=== PATIENT | female | born 1970 | race Caucasian/White ===

== ENCOUNTER 2020-05-18 13:38 | Outpatient (CLI) | payer OTHER, SELFPAY ==
--- NOTE | ~2020-05-18 | US_ITS ---
EXAMINATION: US right upper quadrant EXAM DATE: 05/18/2020 14:17 INDICATION: Right upper quadrant pain. TECHNIQUE: Multiple grayscale and Doppler images of the abdomen right upper quadrant were obtained (b y a technologist who performed the scan) and subsequently reviewed. There is no prior study for caleb tomlin. FINDINGS: The pancreatic head and body are normal in appearance. The pancreatic tail is not visualized. The l iver has normal echogenicity and contour. There are no focal liver lesions identified. There is no evidence of intrahepatic biliary duct dilation. Portal venous flow was seen in the hepatopedal, nor mal direction and has normal Doppler waveform. No right-sided hydronephrosis. Common bile duct measures 6 mm, which is upper limits of normal. There is cholelithiasis with wall ec ho shadow appearance. No evidence of pericholecystic fluid. Technologist performing exam reports alisha ent did not demonstrate sonographic Braxton's sign. Please note that this sign is less reliable in pa tients who have received pain medication. IMPRESSION: Stone filled gallbladder. Reviewed, dictated and finalized at location B. 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
== END 2020-05-18 13:39 | disposition home or self-care (01) ==
PROVIDERS: PCP Internal Medicine; Visit Provider Clinical Nurse Specialist
DX: K80.20 Calculus of gallbladder without cholecystitis without obstruction (principal)
CPT/HCPCS: 76705

== ENCOUNTER → 2020-06-26 02:35 | Outpatient (CLI) | payer OTHER, SELFPAY ==
[2020-06-26 21:58] LABS: SARS-CoV-2 RNA PCR Negative
== END ==
PROVIDERS: PCP Internal Medicine; Visit Provider Surgery
DX: Z01.812 Encounter for preprocedural laboratory examination (principal); Z20.822 Contact with and (suspected) exposure to COVID-19
CPT/HCPCS: C9803; U0003; U0005

== ENCOUNTER 2020-06-29 00:56 | Day surgery (SDC) | payer OTHER, SELFPAY ==
[2020-06-22 16:32] VITALS: BMI 30.1
[2020-06-29] VITALS (8 sets, daily range): BP systolic 102–116; BP diastolic 58–73; PULSE 67–89; RESP 11–20; TEMP 36.1–37.2; O2SAT 97–100
[2020-06-29] MEDS: LACTATED RINGERS 1,000 ML 30 ML IV CONT ×2 (07:00→08:28)
--- NOTE | 2020-06-29 07:01 | P.PNAN_ITS ---
Anes - Initial Pre Proc Eval Procedure: Operation Date: 06/29/20 07:30 Proposed Procedures p Laparoscopic Cholecystectomy, Possible Open - Ruthie Ge MD Date/Time: 06/29/20 07:01 Surgeon: Ruthie Ge MD Pre Op Diagnosis: Chronic Cholecystitis with Stones Patient Data Age: 49 Gender: F Height: 5 ft 3 in Weight: 77.11 kg Allergies Allergy/AdvReac Type Severity Reaction Status Date / Time shellfish derived Allergy Rash Verified 05/25/20 13:44 Home Medications Medication Instructions Recorded Confirmed Type acyclovir 800 mg tablet 800 mg PO DAILY 03/05/20 06/22/20 History calcium carbonate 500 mg calcium 500 mg PO DAILY 03/05/20 06/22/20 History (1,250 mg) tablet norethindrone (contraceptive) 0.35 0.35 mg PO DAILY 03/05/20 06/22/20 History mg tablet Patient hx anesthesia problems: none Family hx anesthesia problems: none PMFSH Past Medical History Medical History Acid reflux Allergies Alopecia areata Gallstones Genital herpes GERD (gastroesophageal reflux disease) Surgical History Surgical History Delivery by section 2006 H/O wisdom tooth extraction Family History Family History Mother Rheumatoid arthritis Fibromyalgia Sjogrens syndrome Father Elevated cholesterol Grandparent Malignant neoplasm of prostate Hypertension Grandparent Multiple sclerosis Breast cancer Cerebrovascular accident Sibling Multiple sclerosis Sibling Scleroderma Other Opsoclonus-myoclonus syndrome Social History Social History Smoking status: Never smoker Alcohol intake: current Substance use: unknown Living arrangements: with family 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 Questions were solicited and answers provided to the satisfaction of the patient/family/POA.
[2020-06-29] MEDS: ACETAMINOPHEN 500 MG TABLET 1000 MG PO (07:07)
[2020-06-29] MEDS: KETOROLAC 15 MG/ML VIAL (*BKC) IV PUSH (07:14)
--- NOTE | 2020-06-29 07:20 | WPDHPUPDATE1 ---
History and Physical Update Update Date/Time: 06/29/20 07:20 History and Physical has been reviewed, including an updated exam of the patient. There are NO changes in the patient's condition. Risks, benefits, and alternatives have been discussed and questions answered. Patient agrees to proceed with procedure.
[2020-06-29] MEDS: ceFAZolin 2 GM/D5W 50 ML 2 GM/50 ML BAG IVPB (07:31)
[2020-06-29] MEDS: BUPIVACAINE/EPINEPHRINE 0.5% 30 ML VIAL INFILTRATE (08:17)
--- NOTE | 2020-06-29 08:31 | PM.PROC ---
Procedure Note - Detailed Date of procedure: 06/29/20 Pre-op diagnosis: Chronic Cholecystitis with Stones Post-op diagnosis: same Procedure performed: laparoscopic cholecystectomy Description of procedure: The patient was taken to the operating room placed in the supine position. After adequate induction of general anesthesia, the patient was prepped and draped in normal sterile fashion. A time-out was then performed to verify the patient's identity as well as the procedure being performed. I then made a 5 mm incision in the infraumbilical region. Through this, a Veress needle was placed into the peritoneal cavity and CO2 gas was then insufflated. After adequate pneumoperitoneum was achieved, the Veress needle was removed and a 5 mm trocar was placed through this incision. I then placed the laparoscope through this trocar site and under direct visualization placed a further 12 mm subxiphoid port as well as 2 additional 5 mm ports in the right upper abdomen. The gallbladder was then identified and was noted to be slightly inflamed and distended. There were multiple stones noted in the gallbladder. I was able to place a grasper at the dome of the gallbladder and this was retracted anterior and cephalad up over the liver. A 2nd retractor was then placed at the infundibulum and retracted laterally, this allowed visualization of the triangle of Calot. I then was able to visualize the cystic duct in its entirety from its proximal insertion into the gallbladder, to its distal junction with the common hepatic/common bile duct junction. At this point, I carefully skeletonized the proximal cystic duct with the [place] dissector. I then clipped and transected the proximal cystic duct. Next I visualized the cystic artery. Again the artery was skeletonized, clipped, and transected. I then used the Bovie cautery to take down the peritoneal attachments of the gallbladder off the liver bed. Once the gallbladder specimen was completely detached, an endo-pouch was placed through the 12 mm port site. I then placed the gallbladder specimen into the Endo pouch and removed the endo-pouch from the 12 mm port site. The specimen will now be sent to pathology for further review. I then copiously irrigated the right upper quadrant. Hemostasis was noted in the liver bed, the clips were noted to be in good position on both the cystic duct stump and the cystic artery stump. No other pathology was noted in the right upper quadrant. I then moved the laparoscope to the subxiphoid port. No iatrogenic injury or other pathology was noted in the lower abdomen. At this point, the abdomen was desufflated and all ports removed. The fascia of the 12 mm subxiphoid port was closed with a 0 Vicryl figure of 8 suture. All port sites were then closed with 4.O Monocryl subcuticular sutures. Dermabond was placed on each incision. The patient tolerated the procedure well, was extubated in the operating room postoperative and will be transferred to the recovery room in stable condition. Implants: none Anesthesia: GETA Surgeon: Ruthie Ge MD Estimated blood loss (mL): 5 Drains: No Packing: No Pathology: yes Complications: No immediate complications Condition: stable Disposition: PACU Findings: chronic cholecystitis, cholelithiasis
[2020-06-29] MEDS: SCOPOLAMINE 1.5 MG PATCH TRANSDERM (08:48)
[2020-06-29] MEDS: fentaNYL CITRATE INJ (*CRX) 100 MCG/2 ML VIAL 25 MCG IV PUSH (09:08)
== END 2020-06-29 10:33 | disposition home or self-care (01) ==
PROVIDERS: PCP Internal Medicine; Visit Provider Surgery
PROC: 0FT44ZZ Resection of Gallbladder, Percutaneous Endoscopic Approach (ICD-10-PCS; CPT 47562; principal; 2020-06-29 07:30)
DX: K80.10 Calculus of gallbladder with chronic cholecystitis without obstruction (principal); K21.9 Gastro-esophageal reflux disease without esophagitis; L63.9 Alopecia areata, unspecified; B00.9 Herpesviral infection, unspecified
CPT/HCPCS: 47562; 36415; 86850; 86900; 86901; 88304; A9270; C9803; J0690; J1100; J1170; J1885; J2250; J2405; J2704; J2710; J3010; J7030; J7120; U0003; U0005

== ENCOUNTER 2024-06-03 11:05 | Outpatient (CLI) | payer OTHER, SELFPAY ==
--- NOTE | ~2024-06-03 | XR_ITS ---
Left Shoulder Technique: AP and scapular Y views were obtained. Clinical History: Pain Findings: No acute fracture or dislocation is seen. Chronic, healed fracture deformity of the clavicu lar shaft noted. Osseous alignment is anatomic. The glenohumeral and acromioclavicular joint spaces a re preserved. Soft tissues are unremarkable. Impression: No acute abnormality. Chronic, healed fracture deformity of the clavicular shaft. Reviewed, dictated and finalized at [facility]. S SKINNER Impression: No acute abnormality. Chronic, healed fracture deformity of the clavicular shaft.
== END 2024-06-03 11:06 | disposition home or self-care (01) ==
LOC: GOSHIMG 11:06
PROVIDERS: PCP Clinical Nurse Specialist; Visit Provider Clinical Nurse Specialist
DX: S42.022D Displaced fracture of shaft of left clavicle, subsequent encounter for fracture with routine healing (principal); X58.XXXD Exposure to other specified factors, subsequent encounter
CPT/HCPCS: 73030

== ENCOUNTER 2024-06-28 14:39 | Outpatient (CLI) | payer OTHER, SELFPAY ==
--- NOTE | ~2024-06-28 | MR_ITS ---
EXAMINATION: MR brain/brain stem wo/w con DATE: 06/28/2024 15:42 INDICATION: Headache TECHNIQUE: Magnetic resonance imaging (MRI) of the brain and brainstem was performed without and with 15 mL Multihance intravenous contrast. Sequences included sagittal and axial T1-weighted SE, axial d iffusion-weighted FS SE, axial 3D SWAN, axial T2-weighted FLAIR, and axial T2-weighted FSE. Postcontr ast axial and coronal T1-weighted SE was obtained. Apparent diffusion coefficient (ADC) maps were cre ated. COMPARISON: None. FINDINGS: There is a right parafalcine arteriovenous malformation with 2.0 x 1.6 x 1.6 cm masslike cluster of m ultiple serpiginous vessels with associated flow artifact at the medial aspect of the anterior right frontal lobe. There is a prominent draining vein which extends to the superior sagittal sinus. There are no areas of restricted diffusion to suggest acute infarction. No intracranial hemorrhage or abnor mal intracranial mass lesion. There are scattered areas of nonspecific increased T2-weighted signal i ntensity in the cerebral white matter, predominantly involving the deep and periventricular white mat ter. There are no intraparenchymal signal abnormalities seen on the other pulse sequences. The ventri cles are symmetric and normal in size. There are no abnormal extra-axial fluid collections. Flow void s are seen in the cerebral arteries on the T2-weighted sequences consistent with their expected paten cy. Visualized orbits and soft tissues are unremarkable. Mild mucosal thickening the bilateral ethmoi d sinuses. There are no areas of abnormal enhancement on the post contrast images. IMPRESSION: 1. 2.0 x 1.6 x 1.6 cm masslike ball of serpiginous vessels with internal flow artifact and prominent draining vein positioned at the parafalcine anterior right middle lobe consistent with arteriovenous malformation. 2. Otherwise unremarkable brain MR with no acute intracranial process or other abnormally enhancing b rain lesions. Reviewed, dictated and finalized at location A. PUDDLER IMPRESSION: 1. 2.0 x 1.6 x 1.6 cm masslike ball of serpiginous vessels with internal flow a rtifact and prominent draining vein positioned at the parafalcine anterior righ t middle lobe consistent with arteriovenous malformation. 2. Otherwise unremarkable brain MR with no acute intracranial process or other abnormally enhancing brain lesions.
--- OUTSIDE RECORDS SUMMARY | 2024-06-28 14:46 | XMS_ITS | Clinical Summary ---
Author Organization [facility] [address] Address [address] [place] [address] Care Team Providers Care Soldering Machine Tender Name Role Phone Nita Major NP Primary Care Provider [phone] Allergies Active Allergy Reactions Criticality Noted Date Comments Shellfish Rash Medium 11/21/2019 Medications ALPRAZolam (XANAX) 0.5 mg tabletIndication s:Anxiety Take 1 tablet (0.5 mg total) by mouth nightly as needed for anxiety 7 tablet 09/01/2023 Active buPROPion XL (WELLBUTRIN XL) 150 mg 24 hr tabletIndication s:Class 1 obesity due to excess calories without serious comorbidity with body mass index (BMI) of 32.0 to 32.9 in adult Take 2 tablets (300 mg total) by mouth every morning 180 tablet 09/01/2023 09/01/19 25 Active Active Problems Problem Noted Date Diagnosed Date Encounter for screening colonoscopy 01/02/2024 Anxiety 09/01/2023 Assessment & Plan (09/01/2023 5:04 PM CDT): Anxious about travel; will be flying and going on a cruise Xanax 0.5 mg as needed Class 1 obesity due to exces s calories without serious comorbidity with body mass index (BMI) of 32.0 to 32.9 in adult 09/01/2023 Assessment & Plan (09/01/2023 5:11 PM CDT): Stable, has been trying to lose weight Has been doing intermittent fasting; down 8-10 pounds Start Wellbutrin 150 mg daily x 2 weeks then increase to 300 mg daily Resolved Problems Problem Noted Date Diagnosed Date Resolved Date Infectious warts 06/14/2016 09/01/2023 Overview (08/11/2016): Wart Encounters Date Type Department Care Team Description 06/24/2024 11:50 AM WILL CALL ORDER CLERK Lab [address] [address] from Last 3 Months Immunizations Immunization Administration Dates Next Due Influenza, Quadrivalent, Rec ombinant, Egg Free, Preservative Free, Intramuscular 07/22/2019 Influenza, Quadrivalent, Spl it, Preservative Free, Intramuscular 02/26/2023 Influenza, Trivalent, Preservative Free, Intramu scular 02/07/2024 PPD TEST 11/21/2019 Surgical History Surgery Date Site/Laterality Comments BREAST BIOPSY 05/08/2020 Left benign needle bx, cyst; negative Family History Medical History Relation Name Comments Breast cancer Maternal Grandmother Autoimmune disease Mother Lung cancer Mother lung cancer Mother Autoimmune disease Sister 1 Autoimmune disease Sister 2 Ovarian cancer Neg Hx Thyroid cancer Neg Hx Relation Name Status Comments Maternal Grandmother Mother Sister 1 Sister 2 Social History Tobacco Use Types Packs/Day Years Used Date Smoking Tobacco: Never Smokeless Tobacco: Never Tobacco Cessation:Counseling Given: Not Answered PHQ-2 Answer Date Recorded PHQ-2 Total Score (If total score is 3 or more points, staff should administer the PHQ-9) 0 09/01/2023 Comments Unknown Sex and Gender Information Value Date Recorded Sex Assigned at Not on file Legal Sex Female 12:56 PM WILL CALL ORDER CLERK Gender Identity Not on file Sexual Orientation Not on file Obstetrics History Para Term AB IAB SAB Ectopic Multiple Livin g Live Births 4 2 2 Date Outcome GA Total Labor Labor/2nd/3rd Weight Sex Type Anes PTL Elisa A1 A5 Name Clin Term Term Last Filed Vital Signs Vital Sign Reading Time Taken Comments Blood Pressure 128/84 09/01/2023 4:51 PM CDT Pulse 91 09/01/2023 4:51 PM CDT Temperature 36.7 C (98 F) 09/01/2023 4:51 PM CDT Respiratory Rate 18 09/01/2023 4:51 PM CDT Oxygen Saturation 99% 09/01/2023 4:51 PM CDT Inhaled Oxygen Concentration - - Weight 79.4 kg (175 lb) 09/01/2023 4:51 PM CDT Height 160 cm (5' 2.99 ) 09/01/2023 4:51 PM CDT Body Mass Index 31.01 09/01/2023 4:51 PM CDT Plan of Treatment Scheduled Procedures Name Priority Associated Diagnoses Date/Ti me COLONOSCOPY Open Access Encounter for screening colonoscopy Health Maintenance Due Date Last Done Comments Colon Cancer Screening-Colonoscopy 1969 DTaP/Tdap/Td Vaccine (1 - Tdap) 1980 Hepatitis B Screening 10/14/1987 Regular Well Visit/Exam 18-64 10/14/1987 Zoster Vaccine (1 of 2) 10/14/2019 Cervical Cancer Screening 10/15/2023 10/14/2022 Depression Screening 08/31/2024 09/01/2023 Breast Cancer Screening-Mammogram 02/15/2025 02/16/2024, 12/14/2022, 11/22/2022, Additional history exists Covid-19 Vaccine Discontinued 06/26/2020, 05/28/2020 Influenza Vaccine Completed 02/07/2024, , 01/11/2020, Additional history exists Hepatitis C Screening Completed 06/24/2024, 024 Pneumococcal vaccine <65 Aged Out No longer eligible based on patient's age to complete this topic Procedures Procedure Name Priority Date/Time Associated Diagnosis Comments EGFR Routine 06/24/2024 11:54 AM WILL CALL ORDER CLERK DIFFERENTIAL AUTO Routine 06/24/2024 11: 54 AM WILL CALL ORDER CLERK RHEUMATOID FACTOR Routine 06/24/2024 11: 54 AM WILL CALL ORDER CLERK CRP (ACUTE PHASE) Routine 06/24/2024 11: 54 AM WILL CALL ORDER CLERK LETY SCREEN W/REFLEX ERASMO+DSDNA Routine 06/24/2024 11:54 AM WILL CALL ORDER CLERK CREATINE KINASE (CK), TOTAL Routine 06/24/2024 11:54 AM WILL CALL ORDER CLERK SCL 70 ANTIBODIES Routine 06/24/2024 11: 54 AM WILL CALL ORDER CLERK ERYTHROCYTE SEDIMENTATION RATE Routine 06/24/2024 11:54 AM WILL CALL ORDER CLERK COMPREHENSIVE METABOLIC PANEL Routine 06/24/2024 11:54 AM WILL CALL ORDER CLERK URIC ACID Routine 06/24/2024 11:54 AM WILL CALL ORDER CLERK G6PD QUALITATIVE WITH REFLEX TO QUANTITATIVE Routine 06/24/2024 11:54 AM WILL CALL ORDER CLERK CYCLIC CITRUL PEPTIDE ANTIBODY, IGG Routine 06/24/2024 11:54 AM WILL CALL ORDER CLERK CBC WITH AUTO DIFFERENTIAL Routine 06/24/2024 11:54 AM WILL CALL ORDER CLERK SJOGRENS SYNDROME-B ANTIBODY Routine 06/24/2024 11:54 AM WILL CALL ORDER CLERK SJOGRENS SYNDROME-A ANTIBODY Routine 06/24/2024 11:54 AM WILL CALL ORDER CLERK HEPATITIS B SURFACE ANTIGEN Routine 06/24/2024 11:54 AM WILL CALL ORDER CLERK HEPATITIS C ANTIBODY Routine 06/24/2024 11:54 AM WILL CALL ORDER CLERK SCREENING MAMMOGRAM BILATERAL W ALAN Schedule Routine, Read Routine (OP Routine) 02/16/2024 1:24 PM CDT Screening mammogram, encounter for from Last 3 Months or Most Recently Relevant to Health Maintenance Results * LETY screen w/rflx ERASMO+dsDNA (06/24/2024 11:54 AM WILL CALL ORDER CLERK) LETY Negative Comment: Interpretive Data Normal range for LETY Qualitative Antibody = Negative. 1. LETY is performed using indirect immunofluorescence against HEp-2 cells 2. LETY titers are performed on all positive qualitative results. 3. A significantly positive LETY result is defined as a positive nuclear fluorescence at a titer of 1:80 or greater. 4. 15% of normal people above age 65 have significantly positive LETY results. 5% or less of normal people age 65 or under have significantly positive LETY results. Current interpretive data was last revised on 2020. Testing performed by: [facility], [address] [place] [address] Blood 06/24/2024 11:5 4 AM WILL CALL ORDER CLERK 06/24/2024 7:49 PM WILL CALL ORDER CLERK us Virginia Mancia MD LAB BLOOD ORDERABLES Final Resul t Performing Organization Address [facility] de Phone Number [facility] [address] Department [place] [address] * G6PD qualitative with reflex to quantitative (06/24/2024 11:54 AM WILL CALL ORDER CLERK) G6PD Normal Normal Comment: Interp data: G6PD activity should be interpreted in the context of a patient's hematocrit. Hematocrit < 20% may lead to a falsely deficient result, while hematocrit > 50% may lead to a falsely normal result. Current interpretive data was last revised on 2019. Testing performed by: [facility], [address] [place] [address]., [address] Blood 06/24/2024 11:5 4 AM WILL CALL ORDER CLERK 06/24/2024 7:49 PM WILL CALL ORDER CLERK Result Toni Mancia MD LAB BLOOD ORDERABLES Final Resul t Performing Organization Address [facility] de Phone Number [facility] [address] Department [place] [address] * SCL 70 abs (06/24/2024 11:54 AM WILL CALL ORDER CLERK) Anti-Scl70, IgG <0.2 <=0.9 Ab Index Comment: Interpretive Data Negative: < 1.0 Ab Index Positive: > or = 1.0 Ab Index Current interpretive data was last revised on 2016. Testing performed by: [facility], [address] [place] [address]., [id number] Blood 06/24/2024 11:5 4 AM WILL CALL ORDER CLERK 06/24/2024 7:43 PM WILL CALL ORDER CLERK us Virginia Mancia MD LAB BLOOD ORDERABLES Final Resul t Performing Organization Address [facility] Co de Phone Number [facility] [address] Department [place] [address] * eGFR (06/24/2024 11:54 AM WILL CALL ORDER CLERK) eGFR >90 >=60 mL/min/1. 73 m2 Comment: Interpretive Data Reference Interval Normal >/= 90 mL/min/1.73m2 Mildly decreased* 60 - 89 mL/min/1.73m2 Mildly to moderately decreased 45 - 59 mL/min/1.73m2 Moderately to severely decreased 30 - 44 mL/min/1.73m2 Severely decreased 15 - 29 mL/min/1.73m2 Kidney Failure < 15 mL/min/1.73m2 *Relative to young adult level Estimated glomerular filtration rate is determined by the 2020 CKD-EPI equation recommended by the National Kidney Foundation (A Unifying Approach to GFR Estimation: Recommendations of the NKF-ASK Task Force on Reassessing the Inclusion of Race in Diagnosing Kidney Disease, JASN 2020). The CKD-EPI equation should not be used for patients with unstable renal function and has not been validated in children and those over 70. Current interpretive data was last reviewed 2021. Blood 06/24/2024 11:5 4 AM WILL CALL ORDER CLERK 06/24/2024 5:23 PM WILL CALL ORDER CLERK us Virginia Mancia MD LAB BLOOD ORDERABLES Final Resul t Performing Organization Address City/[facility]/ZIP Co de Phone Number [facility] [address] Department [place] [address] * Differential, auto (06/24/2024 11:54 AM WILL CALL ORDER CLERK) Pathologist [facility] Neutrophil abs 3.8 1.5 - 6.5 K/cumm Imm gran abs 0.0 0.0 - 0.1 K/cumm [facility] Lymphocyte abs 1.7 0.8 - 3.3 K/cumm [facility] Monocyte abs 0.7 0.2 - 0.8 K/cumm [facility] Eosinophil abs 0.1 0.0 - 0.5 K/cumm [facility] Basophil abs 0.0 0.0 - 0.1 K/cumm [facility] Neutrophil pct 60.8 % [facility] Comment: Interpretive Data Percent cell count reference ranges are not reported, since discordance with absolute values may lead to misinterpretation of CBC data. Current Interpretive Data was last revised on 2017. Imm gran pct 0.2 % [facility] Comment: Interpretive Data Percent cell count reference ranges are not reported, since discordance with absolute values may lead to misinterpretation of CBC data. Current Interpretive Data was last revised on 2017. Lymphocyte pct 26.5 % [facility] Comment: Interpretive Data Percent cell count reference ranges are not reported, since discordance with absolute values may lead to misinterpretation of CBC data. Current Interpretive Data was last revised on 2017. Monocyte pct 10.6 % [facility] Comment: Interpretive Data Percent cell count reference ranges are not reported, since discordance with absolute values may lead to misinterpretation of CBC data. Current Interpretive Data was last revised on 2017. Eosinophil pct 1.3 % [facility] Comment: Interpretive Data Percent cell count reference ranges are not reported, since discordance with absolute values may lead to misinterpretation of CBC data. Current Interpretive Data was last revised on 2017. Basophil pct 0.6 % [facility] Comment: Interpretive Data Percent cell count reference ranges are not reported, since discordance with absolute values may lead to misinterpretation of CBC data. Current Interpretive Data was last revised on 2017. Blood 06/24/2024 11:5 4 AM WILL CALL ORDER CLERK 06/24/2024 3:17 PM WILL CALL ORDER CLERK us Virginia Mancia MD LAB BLOOD ORDERABLES Final Resul t [facility] [address] Department [place] [address] * (ABNORMAL) CBC with auto differential (06/24/2024 11:54 AM WILL CALL ORDER CLERK) [facility] WBC 6.2 3.8 - 9.9 K/cumm Hgb 11.7(L) 11.9 - 15.5 g/dL [facility] Hct 38.4 35.6 - 45.5 % [facility] Plt 338 150 - 400 K/cumm [facility] MPV 11.3 9.1 - 12.3 fL [facility] RBC 4.74 3.90 - 5.20 M/cumm [facility] MCV 81.0(L) 81.3 - 96.4 fL [facility] MCH 24.7(L) 27.1 - 33.3 pg [facility] MCHC 30.5(L) 32.3 - 35.7 g/dL [facility] RDW CV 14.3 11.1 - 14.9 % [facility] RDW SD 41.7 35.7 - 48.1 fL [facility] NRBC abs 0.00 0.00 - 0.01 K/cumm [facility] Blood 06/24/2024 11:5 4 AM WILL CALL ORDER CLERK 06/24/2024 3:17 PM WILL CALL ORDER CLERK us Virginia Mancia MD LAB BLOOD ORDERABLES Final Resul t [facility] [address] Department [place] [address] * Hepatitis C antibody Blood (06/24/2024 11:54 AM WILL CALL ORDER CLERK) [facility] Hep C Ab Nonreactive Nonreactive Comment: Interpretive Data Nonreactive: Antibodies to HCV not detected. Does NOT exclude the possibility of recent exposure to HCV. Equivocal: Equivocal for HCV antibodies. Supplemental molecular testing will be automatically performed to determine infection status in accordance with current CDC screening recommendations. Reactive: Positive for HCV antibodies. This may represent current or past HCV infection. Supplemental molecular testing will be automatically performed to determine current infection status in accordance with current CDC screening recommendations. Interpretive data was last revised on 2019. Blood 06/24/2024 11:5 4 AM WILL CALL ORDER CLERK 06/24/2024 5:23 PM WILL CALL ORDER CLERK us Virginia Mancia MD LAB MICROBIOLOGY - GENERAL ORDER YANETH Final Result Performing Organization Address [facility] Co de Phone Number [facility] [address] Department of [employer] [place], [place] [id number] * Cyclic citrul peptide antibody, IgG (06/24/2024 11:54 AM WILL CALL ORDER CLERK) CCP Ab <0.5 <=2.9 units/mL Comment: Interpretive data Negative: <3 units/mL Positive: > or equal to 3 units/mL Current interpretive data was last revised on 2016. Testing performed by: [facility], [address] [place]., [address] Blood 06/24/2024 11:5 4 AM WILL CALL ORDER CLERK 06/24/2024 7:43 PM WILL CALL ORDER CLERK us Virginia Mancia MD LAB BLOOD ORDERABLES Final Resul t Performing Organization Address [facility] Co de Phone Number [facility] [address] Department [employer] [place], [place] [id number] * Hepatitis B Surface Antigen Blood (06/24/2024 11:54 AM WILL CALL ORDER CLERK) Pathologist [facility] HepBsAg Nonreactive Nonreactive Blood 06/24/2024 11:5 4 AM WILL CALL ORDER CLERK 06/24/2024 5:23 PM WILL CALL ORDER CLERK us Virginia Mancia MD LAB MICROBIOLOGY - GENERAL ORDER YANETH Final Result Performing Organization Address City/[facility] Co de Phone Number [facility] [address] [facility] [employer] [place], [place] [id number] * Sjogren's syndrome B ab (06/24/2024 11:54 AM WILL CALL ORDER CLERK) Pathologist [facility] Anti-ERASMO, SS-B <0.2 <=0.9 Ab Index Comment: Interpretive Data Negative: < 1.0 Ab Index Positive: > or = 1.0 Ab Index Current interpretive data was last revised on 2016. Testing performed by: [facility], [address] [place]., [address] Blood 06/24/2024 11:5 4 AM WILL CALL ORDER CLERK 06/24/2024 7:43 PM WILL CALL ORDER CLERK us Virginia Mancia MD LAB BLOOD ORDERABLES Final Resul t Performing Organization Address [facility] de Phone Number [facility] [address] Department [place] [address] * Sjogren's syndrome A ab (06/24/2024 11:54 AM WILL CALL ORDER CLERK) Anti-ERASMO, SS-A <0.2 <=0.9 Ab Index Comment: Interpretive Data Negative: < 1.0 Ab Index Positive: > or = 1.0 Ab Index Current interpretive data was last revised on 2016. Testing performed by: [facility], [address] [place] [address], [place]., [address] Blood 06/24/2024 11:5 4 AM WILL CALL ORDER CLERK 06/24/2024 7:43 PM WILL CALL ORDER CLERK us Virginia Mancia MD LAB BLOOD ORDERABLES Final Resul t Performing Organization Address [facility] Co de Phone Number [facility] [address] Department [place] [address] * Erythrocyte sedimentation rate (06/24/2024 11:54 AM WILL CALL ORDER CLERK) Erythrocyte sedimentation rate 22 1 - 30 mm/hr Blood 06/24/2024 11:5 4 AM WILL CALL ORDER CLERK 06/24/2024 3:17 PM WILL CALL ORDER CLERK us Virginia Mancia MD LAB BLOOD ORDERABLES Final Resul t Performing Organization Address [facility] Co de Phone Number [facility] [address] [facility] [place] [address] * Rheumatoid factor (06/24/2024 11:54 AM WILL CALL ORDER CLERK) Pathologist [facility] Rheumatoid factor, quant <10 <=15 IUnits/mL Blood 06/24/2024 11:5 4 AM WILL CALL ORDER CLERK 06/24/2024 5:23 PM WILL CALL ORDER CLERK us Virginia Mancia MD LAB BLOOD ORDERABLES Final Resul t Performing Organization Address [facility] Co de Phone Number [facility] [address] Department [place] [address] * CRP (acute phase) (06/24/2024 11:54 AM WILL CALL ORDER CLERK) Pathologist [facility] CRP <3.0 <=10.0 mg/L Blood 06/24/2024 11:5 4 AM WILL CALL ORDER CLERK 06/24/2024 5:23 PM WILL CALL ORDER CLERK Result Toni Mancia MD LAB BLOOD ORDERABLES Final Resul t Performing Organization Address [facility] Co de Phone Number [facility] [address] Department [place] [address] * Uric acid (06/24/2024 11:54 AM WILL CALL ORDER CLERK) Pathologist [facility] Uric acid 3.8 2.5 - 7.0 mg/dL Blood 06/24/2024 11:5 4 AM WILL CALL ORDER CLERK 06/24/2024 5:23 PM WILL CALL ORDER CLERK Result Toni Mancia MD LAB BLOOD ORDERABLES Final Resul t Performing Organization Address [facility] Co de Phone Number [facility] [address] Department [place] [address] * Creatine kinase (CK), total (06/24/2024 11:54 AM WILL CALL ORDER CLERK) CK 80 30 - 200 Units/L Blood 06/24/2024 11:5 4 AM WILL CALL ORDER CLERK 06/24/2024 5:23 PM WILL CALL ORDER CLERK us Virginia Mancia MD LAB BLOOD ORDERABLES Final Resul t [facility] [address] Department [place] [address] * (ABNORMAL) Comprehensive metabolic panel (06/24/2024 11:54 AM WILL CALL ORDER CLERK) Pathologist [facility] Sodium 140 135 - 145 mmol/L Potassium, pl 3.7 3.3 - 4.9 mmol/L [facility] Chloride 103 97 - 110 mmol/L [facility] CO2 26 22 - 32 mmol/L [facility] Anion gap 11 2 - 15 mmol/L [facility] BUN 8 6 - 25 mg/dL [facility] Creatinine 0.70 0.60 - 1.10 mg/dL [facility] Glucose 68(L) 70 - 199 mg/dL [facility] Comment: Interpretive Data Fasting glucose >/= 126 mg/dl is diagnostic for diabetes. Fasting is defined as no caloric intake for at least 8 hours. Fasting glucose between 100 mg/dl to 125 mg/dl is diagnostic of prediabetes. In a patient with classic symptoms of hyperglycemia or hyperglycemic crisis, a random glucose >/= 200 mg/dl is diagnostic for diabetes. In the absence of unequivocal hyperglycemia, results should be confirmed by repeat testing. The classification and Diagnosis of Diabetes Diabetes Care 2021; 46: S19-S40. Current interpretive data was last revised 2022. Calcium 9.3 8.5 - 10.3 mg/dL [facility] Bilirubin, total 0.2 0.1 - 1.2 mg/dL [facility] Protein, pl 7.7 6.5 - 8.5 g/dL [facility] Albumin 4.2 3.5 - 5.0 g/dL [facility] Alk phos 85 40 - 130 Units/L [facility] ALT 18 7 - 45 Units/L [facility] AST 19 10 - 45 Units/L [facility] Blood 06/24/2024 11:5 4 AM WILL CALL ORDER CLERK 06/24/2024 5:23 PM WILL CALL ORDER CLERK Virginia Mancia MD LAB BLOOD ORDERABLES Final Resul t [facility] [address] Department [place] [address] * Screening Mammogram Bilateral W Alan (02/16/2024 1:24 PM CDT) Anatomical Region Laterality Modality Breast Bilateral Mammography 02/17/2024 6:00 PM CDT Impressions 02/17/2024 6:00 PM CDT No evidence of malignancy in either breast. Multiple small similar bilateral masses are again noted these are fluctuating over the years likely representing previously worked up cyst and are considered benign. FINAL ASSESSMENT: BI-RADS Category 2: Benign. RECOMMENDATION: Given heterogeneously dense breast tissue and family history annual screening breast MRI can be considered for this patient. Recommend return for annual screening mammogram in 12 months. Electronically signed by: CARSON CORNELIUS MD Narrative 02/17/2024 6:00 PM CDT EXAMINATION: BILATERAL SCREENING MAMMOGRAM COMPARISON: All prior mammograms dating back to 2018. TECHNIQUE: Full-field 2D and digital breast tomosynthesis (DBT) images were obtained. CAD was utilized. BREAST PARENCHYMAL COMPOSITION: The breasts are heterogenously dense, which may obscure small masses. FINDINGS: There is no suspicious mass, calcification, or distortion in either breast. Multiple bilateral similar fluctuating masses are noted. These are considered benign. Self Screening Mammogram IMG MAMMO PROCEDURES Fi nal Result from Last 3 Months or Most Recently Relevant to Health Maintenance Insurance [employer] Address: [address] [place] [address] [employer] Address: [address] [place] [address] Care Teams Soldering Machine Tender Relationship Specialty Start Date End Date Nita Major NP PCP - General Family Medicine 09/01/23
--- OUTSIDE RECORDS SUMMARY | 2024-06-28 14:46 | XMS_ITS | Encounter Summary ---
Author Organization [facility] Healthcare Address [address] [place] [address] Care Team Providers Care Machine Cage Maker Name Role Phone Abdias Whitehead DO Primary Care Provider [phone] Nita Major NP Primary Care Provider [phone] Encounter Details Date Type Department Care Team (Late st Contact Info) Description 11/28/2022 Telephone [facility] Diagnostic Imaging [address] [place] [address] Kiera Rowland, RT Social History Tobacco Use Types Packs/Day Years Used Date Smoking Tobacco: Never Assessed Comments Unknown Sex and Gender Information Value Date Recorded Sex Assigned at Not on file Legal Sex Female 12:56 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
--- OUTSIDE RECORDS SUMMARY | 2024-06-28 14:46 | XMS_ITS ---
Care Plan - [facility] Created on: June 28, 2024 SUDARSHAN REY : 1970 Sex: Female Author Organization [facility] Address [address] [place] [address] Phone Care Team Providers Care Manager Basketball Name Role Phone TRENA MCKEON, DELFINA Sullivan Primary Care Provider [phone] ADRIÁN EDWARDS, ASHLEY Santos Unavailable [phone]
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
--- OUTSIDE RECORDS SUMMARY | 2024-06-28 14:46 | XMS_ITS ---
Author Organization [facility] Address [address] [place] [address] Phone Care Team Providers Care Instructor Hairspring Name Role Phone TRENA MCKEON, DELFINA Sullivan Primary Care Provider [phone] ADRIÁN EDWARDS, ASHLEY Santos Unavailable [phone] Problems Includes: Active, inactive, and resolved Problems All Visits Onset Date Resolved Date Provider Condition S tatus Excisional Breast Biopsy 03/19/2021 KATEY SUNSHINE WHNP-BC Active Last Documented On 03/19/2021 1:04PM ; [facility] Note: left breast - apocrine meta plasia Osteopenia 03/21/2018 KATEY SUNSHINE WHNP-BC Active Last Documented On 03/21/2018 9:39AM ; [facility] Note: Dexa done GENITAL HERPES NOS 08/03/2012 LONNY DESOUZA MD Active Last Documented On 3 11:30AM ; [facility] Plan of Treatment Findings Encounter Date Ordered Clinical summary pro vided to patient WELL WOMAN - ESTABLISHED PT with KATEY SUNSHINE WHNP-BC 03/25/2022 Last Documented On 2 1:56PM ; [facility] Ordered follow-up visit 1 ye ar or as needed WELL WOMAN - ESTABLISHED PT with KATEY SUNSHINE WHNP-BC 03/25/2022 Last Documented On 2 1:56PM ; [facility] Ordered Clinical summary pro vided to patient WELL WOMAN - ESTABLISHED PT with KATEY SUNSHINE WHNP-BC 03/19/2021 Last Documented On 1 1:17PM ; [facility] Ordered follow-up visit 1 y ear or as needed WELL WOMAN - ESTABLISHED PT with KATEY SUNSHINE WHNP-BC 03/19/2021 Last Documented On 1 1:17PM ; [facility] Ordered Clinical summary pro vided to patient CHECK UP with KATEY SUNSHINE WHNP-BC 06/05/2020 Last Documented On 1 2:08PM ; [facility] Ordered Clinical summary pro vided to patient WELL WOMAN EXAM with KATEY SUNSHINE WHNP-BC 02/28/2020 Last Documented On 0 2:08PM ; [facility] Ordered follow-up visit 1 ye ar or as needed WELL WOMAN EXAM with KATEY SUNSHINE WHNP-BC 02/28/2020 Last Documented On 0 2:08PM ; [facility] Ordered Clinical summary pro vided to patient DEPO INJECTION with KATEY SUNSHINE WHNP-BC 11/14/2019 Last Documented On 0 2:08PM ; [facility] Ordered Clinical summary pro vided to patient DEPO INJECTION with KATEY SUNSHINE WHNP-BC 08/15/2019 Last Documented On 0 2:09PM ; [facility] Ordered Clinical summary pro vided to patient WELL WOMAN EXAM with KATEY SUNSHINE WHNP-BC 02/08/2019 Last Documented On 9 2:44PM ; [facility] Ordered follow-up visit 1 ye ar or as needed WELL WOMAN EXAM with KATEY SUNSHINE WHNP-BC 02/08/2019 Last Documented On 9 2:44PM ; [facility] Ordered Clinical summary pro vided to patient 2 WK CK-UP with KATEY SUNSHINE WHNP-BC 03/21/2018 Last Documented On 8 9:54AM ; [facility] Ordered Clinical summary pro vided to patient COLPOSCOPY with KATEY SUNSHINE WHNP-BC 03/02/2018 Last Documented On 8 8:21AM ; [facility] Ordered Clinical summary pro vided to patient DISABILITY BENEFITS SPECIALIST EXAM with KATEY SUNSHINE WHNP-BC 02/05/2018 Last Documented On 8 8:46AM ; [facility] Ordered follow-up visit 1 ye ar or as needed DISABILITY BENEFITS SPECIALIST EXAM with KATEY SUNSHINE WHNP-BC 02/05/2018 Last Documented On 8 8:46AM ; [facility] Ordered DNA probe for Neisse ottoniel gonorrhoeae and Chlamydia trachomatis PROBLEM VISIT with LONNY DESOUZA MD 06/11/2009 Last Documented On 0 2:05PM ; [facility] Instructions to patient Instructions for patient : B reast Self Exam discussed Last Documented On 2 1:31PM ; [facility] Lose weight Last Documented On 2 1:32PM ; [facility] Safe sex counseling Last Documented On 2 1:56PM ; [facility] Colonoscopy Handout given to patient Last Documented On 2 1:32PM ; [facility] Instructions for patient : B reast Self Exam discussed Last Documented On 1 1:03PM ; [facility] Lose weight Last Documented On 1 1:05PM ; [facility] Safe sex counseling Last Documented On 1 2:05PM ; [facility] Instructions for patient : B reast Self Exam discussed Last Documented On 0 1:25PM ; [facility] Lose weight Last Documented On 0 1:26PM ; [facility] Colonoscopy Handout given to patient Last Documented On 0 1:26PM ; [facility] Instructions for patient : B reast Self Exam discussed Last Documented On 9 2:25PM ; [facility] Lose weight Last Documented On 9 2:26PM ; [facility] May resume normal activities as tolerated Last Documented On 8 9:39AM ; [facility] Instructions for patient : B reast Self Exam discussed Last Documented On 8 8:28AM ; [facility] Lose weight Last Documented On 8 8:29AM ; [facility] Instructions for patient : B reast Self Exam discussed Last Documented On 7 2:12PM ; [facility] Instructions for patient : B reast Self Exam discussed Last Documented On 6 11:26AM ; [facility] Instructions for patient : B reast Self Exam discussed Last Documented On 5 11:17AM ; [facility] Instructions for patient : B reast Self Exam discussed Last Documented On 4 3:24PM ; [facility] Instructions for patient : B reast Self Exam discussed Last Documented On 3 11:26AM ; [facility] Instructions for patient : B reast Self Exam discussed Last Documented On 2 3:46PM ; [facility] Instructions for patient : B reast Self Exam discussed Last Documented On 0 10:49AM ; [facility] Return to the clinic if cond ition worsens or new symptoms arise Last Documented On 0 2:03PM ; [facility] Education and Decision Aids were provided during visit for: Patient Education: Daily juan jose cium and vitamin D Last Documented On 2 1:31PM ; [facility] Patient Education: weight be aring exercise Last Documented On 2 1:31PM ; [facility] Patient Education: Daily juan jose cium and vitamin D Last Documented On 1 1:03PM ; [facility] Patient Education: weight be aring exercise Last Documented On 1 1:03PM ; [facility] Patient Education: Daily juan jose cium and vitamin D Last Documented On 0 1:25PM ; [facility] Patient Education: weight be aring exercise Last Documented On 0 1:25PM ; [facility] control consent review ed and signed Last Documented On 0 2:07PM ; [facility] Patient Education: Daily juan jose cium and vitamin D Last Documented On 0 1:58PM ; [facility] Patient Education: weight be aring exercise Last Documented On 0 1:58PM ; [facility] Patient Education: Daily juan jose cium and vitamin D Last Documented On 9 2:25PM ; [facility] Patient Education: weight be aring exercise Last Documented On 9 2:25PM ; [facility] Patient counseling : discuss ed with patient importance of f/u re: increased risks of cervical cancer Last Documented On 8 9:39AM ; [facility] INFORMED CONSENT DISCUSSION: Colposcopy was discussed in detail including risk of post procedure bleeding. Patient is not to have intercourse for 2 weeks following the procedure. Patient expressed understanding of the above and consented to the procedure Last Documented On 8 8:03AM ; [facility] Patient Education: Daily juan jose cium and vitamin D Last Documented On 8 8:28AM ; [facility] Patient Education: weight be aring exercise Last Documented On 8 8:28AM ; [facility] control consent review ed and signed Last Documented On 8 8:29AM ; [facility] Patient education : Last Documented On 7 2:12PM ; [facility] STD screening offered and de clined Last Documented On 7 2:12PM ; [facility] Patient education : Last Documented On 6 11:26AM ; [facility] STD screening desired and or dered (cultures only) Last Documented On 6 11:39AM ; [facility] Patient education : Last Documented On 5 11:17AM ; [facility] STD screening offered and de clined Last Documented On 5 11:17AM ; [facility] Patient education : Last Documented On 4 3:24PM ; [facility] STD screening offered and de clined Last Documented On 4 3:24PM ; [facility] Patient education : Last Documented On 3 11:26AM ; [facility] STD screening offered and de clined Last Documented On 3 11:26AM ; [facility] Patient education : Last Documented On 2 3:46PM ; [facility] STD screening desired and or dered Last Documented On 2 4:04PM ; [facility] Patient education : Last Documented On 0 10:49AM ; [facility] STD screening offered and de clined Last Documented On 0 10:49AM ; [facility] Patient counseling : STD pre vention. I discussed with the patient that condoms can reduce the chance of getting an STD but not eliminate it. Increased exposure from multiple sex partners also discussed Last Documented On 0 2:03PM ; [facility] Assessments Includes: Assessments for all patient encounters Findings Encounter Date NORMAL FEMALE EXAM WELL WOMAN - ESTABLISHED PT w ith KATEY SUNSHINE WHNP-BC 03/25/2022 Last Documented On 2 1:56PM ; [facility] Screening Malig. Neoplasm Rectum WELL WO MAN - ESTABLISHED PT with KATEY A JONG WHNP-BC 03/25/2022 Last Documented On 2 1:56PM ; [facility] NORMAL FEMALE EXAM WELL WOMAN - ESTABLISHED PT w ith KATEYKALLI SUNSHINE WHNP-BC 03/19/2021 Last Documented On 1 1:17PM ; [facility] Screening Malig. Neoplasm Rectum WELL WO MAN - ESTABLISHED PT with KATEY A JONG WHNP-BC 03/19/2021 Last Documented On 1 1:17PM ; [facility] NORMAL FEMALE EXAM WELL WOMAN EXAM with KATEYKALLI SUNSHINE WHNP-BC 02/28/2020 Last Documented On 0 2:08PM ; [facility] Screening Malig. Neoplasm Rectum WELL WO MAN EXAM with KATEY A JONG WHNP-BC 02/28/2020 Last Documented On 0 2:08PM ; [facility] NORMAL FEMALE EXAM WELL WOMAN EXAM with KATEYKALLI SUNSHINE WHNP-BC 02/08/2019 Last Documented On 9 2:44PM ; [facility] Screening Malig. Neoplasm Rectum WELL WO MAN EXAM with KATEYKALLI SUNSHINE WHNP-BC 02/08/2019 Last Documented On 9 2:44PM ; [facility] Assessment of abnormal Pap s mear of cervix COLPOSCOPY with KATEYKALLI SUNSHINE WHNP-BC 03/02/2018 Last Documented On 8 8:21AM ; [facility] Assessment of abnormal Pap s mear: atypical squamous cells of undetermined significance COLPOSCOPY with KATEY A JONG WHNP-BC 03/02/2018 Last Documented On 8 8:21AM ; [facility] Assessment of cervical high risk human papilloma virus DNA test was positive COLPOSCOPY with KATEYKALLI SUNSHINE WHNP-BC 03/02/2018 Last Documented On 8 8:21AM ; [facility] NORMAL FEMALE EXAM DISABILITY BENEFITS SPECIALIST EXAM with KATEYKALLI SUNSHINE [facility]-BC 02/05/2018 Last Documented On 8 8:46AM ; [facility] Screening Malig. Neoplasm Rectum DISABILITY BENEFITS SPECIALIST EXAM with Tom SUNSHINE [facility]-BC 02/05/2018 Last Documented On 8 8:46AM ; [facility] Routine pelvic exam DISABILITY BENEFITS SPECIALIST EXAM with LONNY DESOUZA MD 01/30/2017 Last Documented On 7 2:25PM ; [facility] Routine pelvic exam DISABILITY BENEFITS SPECIALIST EXAM with LONNY DESOUZA MD 01/12/2016 Last Documented On 6 11:42AM ; [facility] Routine pelvic exam DISABILITY BENEFITS SPECIALIST EXAM with LONNY DESOUZA MD 01/06/2015 Last Documented On 5 11:27AM ; [facility] Routine pelvic exam DISABILITY BENEFITS SPECIALIST EXAM with LONNY DESOUZA MD 08/06/2013 Last Documented On 4 3:58PM ; [facility] Routine pelvic exam DISABILITY BENEFITS SPECIALIST EXAM with LONNY DESOUZA MD 08/03/2012 Last Documented On 3 11:50AM ; [facility] Cystocele CONSULTATION with LONNY DESOUZA MD 12/05/2011 Last Documented On 2 4:43PM ; [facility] Uterine prolapse CONSULTATION with LONNY DESOUZA MD 12/05/2011 Last Documented On 2 4:43PM ; [facility] Contraceptive management CONSULTATION with LONNY DESOUZA MD 08/01/2011 Last Documented On 2 2:25PM ; [facility] Routine pelvic exam DISABILITY BENEFITS SPECIALIST EXAM with LONNY DESOUZA MD 07/19/2011 Last Documented On 2 4:04PM ; [facility] Routine pelvic exam DISABILITY BENEFITS SPECIALIST EXAM with LONNY DESOUZA MD 11/12/2009 Last Documented On 0 11:06AM ; [facility] Instructions Includes: Instructions for all patient encounters Instructions to patient Instructions for patient : B reast Self Exam discussed Last Documented On 2 1:31PM ; [facility] Lose weight Last Documented On 2 1:32PM ; [facility] Safe sex counseling Last Documented On 2 1:56PM ; [facility] Colonoscopy Handout given to patient Last Documented On 2 1:32PM ; [facility] Instructions for patient : B reast Self Exam discussed Last Documented On 1 1:03PM ; [facility] Lose weight Last Documented On 1 1:05PM ; [facility] Safe sex counseling Last Documented On 1 2:05PM ; [facility] Instructions for patient : B reast Self Exam discussed Last Documented On 0 1:25PM ; [facility] Lose weight Last Documented On 0 1:26PM ; [facility] Colonoscopy Handout given to patient Last Documented On 0 1:26PM ; [facility] Instructions for patient : B reast Self Exam discussed Last Documented On 9 2:25PM ; [facility] Lose weight Last Documented On 9 2:26PM ; [facility] May resume normal activities as tolerated Last Documented On 8 9:39AM ; [facility] Instructions for patient : B reast Self Exam discussed Last Documented On 8 8:28AM ; [facility] Lose weight Last Documented On 8 8:29AM ; [facility] Instructions for patient : B reast Self Exam discussed Last Documented On 7 2:12PM ; [facility] Instructions for patient : B reast Self Exam discussed Last Documented On 6 11:26AM ; [facility] Instructions for patient : B reast Self Exam discussed Last Documented On 5 11:17AM ; [facility] Instructions for patient : B reast Self Exam discussed Last Documented On 4 3:24PM ; [facility] Instructions for patient : B reast Self Exam discussed Last Documented On 3 11:26AM ; [facility] Instructions for patient : B reast Self Exam discussed Last Documented On 2 3:46PM ; [facility] Instructions for patient : B reast Self Exam discussed Last Documented On 0 10:49AM ; [facility] Return to the clinic if cond ition worsens or new symptoms arise Last Documented On 0 2:03PM ; [facility] Education and Decision Aids were provided during visit for: Patient Education: Daily juan jose cium and vitamin D Last Documented On 2 1:31PM ; [facility] Patient Education: weight be aring exercise Last Documented On 2 1:31PM ; [facility] Patient Education: Daily juan jose cium and vitamin D Last Documented On 1 1:03PM ; [facility] Patient Education: weight be aring exercise Last Documented On 1 1:03PM ; [facility] Patient Education: Daily juan jose cium and vitamin D Last Documented On 0 1:25PM ; [facility] Patient Education: weight be aring exercise Last Documented On 0 1:25PM ; [facility] control consent review ed and signed Last Documented On 0 2:07PM ; [facility] Patient Education: Daily juan jose cium and vitamin D Last Documented On 0 1:58PM ; [facility] Patient Education: weight be aring exercise Last Documented On 0 1:58PM ; [facility] Patient Education: Daily juan jose cium and vitamin D Last Documented On 9 2:25PM ; [facility] Patient Education: weight be aring exercise Last Documented On 9 2:25PM ; [facility] Patient counseling : discuss ed with patient importance of f/u re: increased risks of cervical cancer Last Documented On 8 9:39AM ; [facility] INFORMED CONSENT DISCUSSION: Colposcopy was discussed in detail including risk of post procedure bleeding. Patient is not to have intercourse for 2 weeks following the procedure. Patient expressed understanding of the above and consented to the procedure Last Documented On 8 8:03AM ; [facility] Patient Education: Daily juan jose cium and vitamin D Last Documented On 8 8:28AM ; [facility] Patient Education: weight be aring exercise Last Documented On 8 8:28AM ; [facility] control consent review ed and signed Last Documented On 8 8:29AM ; [facility] Patient education : Last Documented On 7 2:12PM ; [facility] STD screening offered and de clined Last Documented On 7 2:12PM ; [facility] Patient education : Last Documented On 6 11:26AM ; [facility] STD screening desired and or dered (cultures only) Last Documented On 6 11:39AM ; [facility] Patient education : Last Documented On 5 11:17AM ; [facility] STD screening offered and de clined Last Documented On 5 11:17AM ; [facility] Patient education : Last Documented On 4 3:24PM ; [facility] STD screening offered and de clined Last Documented On 4 3:24PM ; [facility] Patient education : Last Documented On 3 11:26AM ; [facility] STD screening offered and de clined Last Documented On 3 11:26AM ; [facility] Patient education : Last Documented On 2 3:46PM ; [facility] STD screening desired and or dered Last Documented On 2 4:04PM ; [facility] Patient education : Last Documented On 0 10:49AM ; [facility] STD screening offered and de clined Last Documented On 0 10:49AM ; [facility] Patient counseling : STD pre vention. I discussed with the patient that condoms can reduce the chance of getting an STD but not eliminate it. Increased exposure from multiple sex partners also discussed Last Documented On 0 2:03PM ; [facility] Medical Equipment - Implanted Devices Includes: Current and historical Devices No Medical Equipment Recorded Medications Includes: Current and historical Medications Current Medications (continue as prescribed) Acyclovir 800 MG Oral Tablet 09/23/2022 Provider: KATEY DOAN- Diagnosis: One tablet daily Last Documented On 3 9:36AM By KATEY DOAN-BC ; [facility] Phentermine HCl 37.5 MG Oral Capsule 03/25/2022 Prov ider: Diagnosis: Last Documented On 03/25/2022 1:41PM By Antoine PORTILLO ; [facility] Daily Value Multivitamin Oral Tablet 01/30/2017 Prov ider: Diagnosis: Last Documented On 7 2:09PM By NOAH PORTILLO ; [facility] Calcium 600 MG OR TABS 08/03/2012 Provider: Diagnosis: 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 Last Documented On 3 11:23AM By MACIEL LOPEZ LPN ; [facility] Past Medications on file Acyclovir 800 MG Oral Tablet 06/07/2021 - 09/23/2022 P rovider: KATEY SUNSHINE MIKE-BC Diagnosis: One tablet daily Last Documented On 3 9:29AM By KATEY SUNSHINE MIKE-NALLELY ; [facility] Herlinda 0.35 MG Oral Tablet 03/19/2021 - 03/25/2022 Prov ider: KATEY SUNSHINE WHNP-BC Diagnosis: One tablet daily Last Documented On 03/25/2022 1:41PM By Antoine PORTILLO ; [facility] Herlinda 0.35 MG Oral Tablet 08/21/2020 - 03/19/2021 Prov ider: KATEY SUNSHINE NP-BC Diagnosis: One tablet daily Last Documented On 1 1:17PM By KATEY SUNSHINE MIKE-NALLELY ; [facility] Herlinda 0.35 MG Oral Tablet 08/21/2020 - 08/21/2020 Prov ider: KATEY SNUSHINE WHNP-BC Diagnosis: One tablet daily Last Documented On 1 8:45AM By KATEY SUNSHINE MIKE-NALLELY ; [facility] Herlinda 0.35 MG Oral Tablet 06/18/2020 - 08/21/2020 Prov ider: KATEY SUNSHINE NP-BC Diagnosis: One tablet daily - no furthe r refills until mammogram updated! Last Documented On 1 8:42AM By KATYE SUNSHINE MIKE-NALLELY ; [facility] Diflucan 150 MG Oral Tablet 06/09/2020 - 06/18/2020 Pr ovider: Diagnosis: Last Documented On 06/18/2020 9:19AM By Nora Merino MA ; [facility] Acyclovir 800 MG Oral Tablet 02/28/2020 - 06/07/2021 P rovider: KATEY DOAN-BC Diagnosis: One tablet daily Last Documented On 2 3:17PM By KATEY MERCADO ; [facility] Herlinda 0.35 MG Oral Tablet 02/28/2020 - 06/18/2020 Prov ider: KATEY DOAN-BC Diagnosis: One tablet daily Last Documented On 1 9:24AM By KATEY SUNSHINE JEFFREY ; [facility] medroxyPROGESTERone Acetate 150 MG/ML Intramuscular Suspension 11/14/2019 - 02/28/2020 Provider: KATEY DOAN-BC Diagnosis: Encounter for surveillance of injectable contraceptive as directed - IM q 12 weeks per office staff Last Documented On 0 2:07PM By KATEY MERCADO ; [facility] Acyclovir 800 MG Oral Tablet 06/03/2019 - 02/28/2020 P rovider: KATEY DOAN-BC Diagnosis: One tablet daily Last Documented On 0 2:06PM By KATEY MERCADO ; [facility] medroxyPROGESTERone Acetate 150 MG/ML Intramuscular Suspension 03/13/2019 - 11/14/2019 Provider: KATEY DOAN-BC Diagnosis: Encounter for surveillance of injectable contraceptive as directed - IM q 12 weeks per office staff Last Documented On 0 2:08PM By KATEY MERCADO ; [facility] medroxyPROGESTERone Acetate 150 MG/ML Intramuscular Suspension 02/08/2019 - 11/21/2019 Provider: KATEY DOAN-BC Diagnosis: Encounter for surveillance of injectable contraceptive as directed - IM q 12 weeks per office staff - no further refills until mammogram updated! Last Documented On 0 11:02AM By ALEXSANDRA PORTILLO ; [facility] Vitamin D (Ergocalciferol) [id number] Oral Capsul e 02/13/2018 - 02/08/2019 Provider: Diagnosis: Last Documented On 02/08/2019 2:33PM By KOTA PORTILLO ; [facility] Acyclovir 800MG Oral Tablet 02/05/2018 - 06/03/2019 Pr ovider: KATEY DOAN-BC Diagnosis: One tablet daily Last Documented On 0 4:24PM By KATEY SUNSHINE [facility] ; [facility] MedroxyPROGESTERone Acetate 150MG/ML Intramuscular Suspension 02/05/2018 - 02/08/2019 Provider: KATEY VELEZ Diagnosis: Encounter for surveillance of injectable contraceptive as directed - IM q 12 weeks per office staff Last Documented On 9 2:37PM By KATEY SUNSHINE [facility] ; [facility] MedroxyPROGESTERone Acetate 150MG/ML Intramuscular Suspension 12/28/2017 - 02/05/2018 Provider: KATEY SUNSHINE [facility] Diagnosis: Encounter for surveillance of injectable contraceptive as directed - IM q 12 weeks per office staff Last Documented On 8 8:46AM By KATEY SUNSHINE [facility] ; [facility] Acyclovir 400MG Oral Tablet 11/27/2017 - 11/21/2019 Pr ovider: LONNY DESOUZA MD Diagnosis: One tablet twice a day Last Documented On 0 11:01AM By ALEXSANDRA PORTILLO ; [facility] Depo-Provera 150MG/ML Intramuscular Suspension 01/30/2017 - 11/21/2019 Provider: LONNY DESOUZA MD Diagnosis: Encounter for surveillance of contraceptives, unspecified as directed Last Documented On 0 11:02AM By ALEXSANDRA PORTILLO ; [facility] ValACYclovir HCl 500MG Oral Tablet 01/30/2017 - 2019 Provider: LONNY DESOUZA MD Diagnosis: One tablet daily Last Documented On 0 11:02AM By ALEXSANDRA PORTILLO ; [facility] MedroxyPROGESTERone Acetate 150MG/ML Intramuscular Suspension 01/27/2017 - 01/30/2017 Provider: Diagnosis: Last Documented On 7 4:35PM By NOAH BEDOLLA Yolanda ; [facility] ValACYclovir HCl 500MG Oral Tablet 01/17/2017 - 2016 Provider: LONNY DESOUZA MD Diagnosis: One tablet daily Last Documented On 01/30/2017 2:24PM By LONNY DESOUZA MD ; [facility] Propranolol HCl 10MG Oral Tablet 05/31/2016 - 01/31/20 17 Provider: Diagnosis: Last Documented On 7 2:08PM By NOAH PORTILLO ; [facility] ValACYclovir HCl 500 MG Tablet 01/12/2016 - 01/17/2017 Provider: LONNY DESOUZA MD Diagnosis: One tablet daily Last Documented On 01/17/2017 1:40PM By LONNY DESOUZA MD ; [facility] Adderall 10 MG Tablet 01/12/2016 - 01/30/2017 Provider : Diagnosis: Last Documented On 7 2:08PM By NOAH PORTILLO ; [facility] Depo-Provera 150 MG/ML Suspension 01/12/2016 - 020 Provider: LONNY DESOUZA MD Diagnosis: as directed Last Documented On 0 11:01AM By ALEXSANDRA PORTILLO ; [facility] Depo-Provera 150 MG/ML Suspension 04/06/2015 - 016 Provider: LONNY DESOUZA MD Diagnosis: as directed i prefilled syringe for IM injection Last Documented On 01/12/2016 11:41AM By LONNY DESOUZA MD ; [facility] ValACYclovir HCl 500 MG Tablet 01/22/2015 - 01/12/2016 Provider: LONNY DESOUZA MD Diagnosis: One tablet daily Last Documented On 01/12/2016 11:41AM By LONNY DESOUZA MD ; [facility] Depo-Provera 150 MG/ML Suspension 01/06/2015 - 015 Provider: LONNY DESOUZA MD Diagnosis: as directed i prefilled syringe for IM injection Last Documented On 04/06/2015 2:01PM By ANTOINE BENDER RN ; [facility] Depo-Provera 150 MG/ML Suspension 01/01/2015 - 01/30/2017 Provider: LONNY DESOUZA MD Diagnosis: CONTRACEPT SURVE ILL NOS as directed Last Documented On 01/30/2017 2:24PM By LONNY DESOUZA MD ; [facility] ValACYclovir HCl 500 MG Tablet 12/22/2014 - 01/22/2015 Provider: LONNY DESOUZA MD Diagnosis: One tablet daily Last Documented On 01/22/2015 12:09PM By LONNY DESOUZA MD ; [facility] Depo-Provera 150 MG/ML Suspension 10/07/2014 - 01/01/2015 Provider: LONNY DESOUZA MD Diagnosis: CONTRACEPT SURVE ILL NOS as directed Last Documented On 01/01/2015 4:36PM By LONNY DESOUZA MD ; [facility] ValACYclovir HCl 500 MG Tablet 09/08/2014 - 12/22/2014 Provider: LONNY DESOUZA MD Diagnosis: One tablet daily Last Documented On 12/22/2014 9:51AM By LONNY DESOUZA MD ; [facility] valACYclovir HCl 500 MG OR TABS 09/02/2013 - 5 Provider: LONNY DESOUZA MD Diagnosis: Last Documented On 09/08/2014 11:45AM By LONNY DESOUZA MD ; [facility] Depo-Provera 150 MG/ML IM SUSP 08/06/2013 - 01/06/2015 Provider: LONNY DESOUZA MD Diagnosis: i prefilled syringe for IM injection Last Documented On 01/06/2015 11:27AM By LONNY DESOUZA MD ; [facility] Valtrex 500 MG OR TABS 08/06/2013 - 10/31/2013 Provide r: Diagnosis: Last Documented On 10/31/2013 8:17AM By DESI NUNEZ LPN ; [facility] Vitamin B12 100 MCG OR TABS 08/06/2013 - 01/12/2016 Provider: Diagnosis: Last Documented On 6 11:11AM By NOAH PORTILLO ; [facility] Animi-3/Vitamin D 1 MG OR CAPS 08/06/2013 - 01/12/2016 Provider: Diagnosis: Last Documented On 6 11:11AM By NOAH PORTILLO ; [facility] Depo-Provera 150 MG/ML IM SUSP 08/05/2013 - 08/06/2013 Provider: LONNY DESOUZA MD Diagnosis: i prefilled syringe for IM injection Last Documented On 08/06/2013 3:41PM By LONNY DESOUZA MD ; [facility] Spironolactone 25 MG OR TABS 11/28/2012 - 01/06/2015 P rovider: Diagnosis: rx'd by pcp for acne on back. scott [facility] Last Documented On 5 11:13AM By MARIO PORTILLO ; [facility] Depo-Provera 150 MG/ML IM SUSP 09/18/2012 - 08/06/2013 Provider: Diagnosis: given right hip by sister per pt 09/12/12, Last Documented On 08/06/2013 3:11PM By DESI NUNEZ LPN ; [facility] Depo-Provera 150 MG/ML IM SUSP 08/03/2012 - 08/05/2013 Provider: LONNY DESOUZA MD Diagnosis: i prefilled syringe for IM injection Last Documented On 08/05/2013 12:07PM By LONNY DESOUZA MD ; [facility] valACYclovir HCl 500 MG OR TABS 08/03/2012 - 4 Provider: LONNY DESOUZA MD Diagnosis: Last Documented On 09/02/2013 10:38AM By LONNY DESOUZA MD ; [facility] valACYclovir HCl 500 MG OR TABS 08/02/2012 - 3 Provider: LONNY DESOUZA MD Diagnosis: TAKE 1 TABLET BY MOUTH EVERY DAY Last Documented On 08/03/2012 11:48AM By LONNY DESOUZA MD ; [facility] valACYclovir HCl 500 MG OR TABS 07/03/2012 - 3 Provider: LONNY DESOUZA MD Diagnosis: Last Documented On 08/02/2012 7:53AM By LONNY DESOUZA MD ; [facility] Depo-Provera 150 MG/ML IM SUSP 06/26/2012 - 08/03/2012 Provider: Diagnosis: administered by her sister on 06/25/12Lot# [id number] EXP 10/2014 Last Documented On 3 11:22AM By MACIEL LOPEZ LPN ; [facility] Depo-Provera 150 MG/ML IM SUSP 06/21/2012 - 08/03/2012 Provider: LONNY DESOUZA MD Diagnosis: USE DIRECTED Last Documented On 08/03/2012 11:48AM By LONNY DESOUZA MD ; [facility] Depo-Provera 150 MG/ML IM SUSP 04/09/2012 - 08/03/2012 Provider: LONNY DESOUZA MD Diagnosis: pt called and l/m on v/m arlin t she was given depo provera inj by RN at work on 04/06/12; lot number [id number], exp 06/2014. 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 Last Documented On 3 11:22AM By MACIEL LOPEZ LPN ; [facility] Adderall 30 MG OR TABS 12/05/2011 - 08/03/2012 Provide r: Diagnosis: Last Documented On 3 11:23AM By MACIEL LOPEZ LPN ; [facility] Depo-Provera 150 MG/ML IM SUSP 08/15/2011 - 06/21/2012 Provider: LONNY DESOUZA MD Diagnosis: i prefilled syringe 150 mg for IM injection Last Documented On 06/21/2012 8:21AM By LONNY DESOUZA MD ; [facility] valACYclovir HCl 500 MG OR TABS 07/19/2011 - 3 Provider: LONNY DESOUZA MD Diagnosis: Last Documented On 07/03/2012 11:01AM By LONNY DESOUZA MD ; [facility] Concerta 54 MG OR TBCR 07/19/2011 - 12/05/2011 Provide r: Diagnosis: Last Documented On 12/05/2011 3:51PM By LAURA HARRINGTON ; [facility] valACYclovir HCl 500 MG OR TABS 06/24/2011 - 2 Provider: LONNY DESOUZA MD Diagnosis: i po bid for 3 days then i po daily Last Documented On 07/19/2011 4:02PM By LONNY DESOUZA MD ; [facility] Nuvigil 50 MG OR TABS 11/12/2009 - 07/19/2011 Provider : Diagnosis: Last Documented On 07/19/2011 3:44PM By LAURA HARRINGTON ; [facility] Zovirax 400 MG OR TABS 06/11/2009 - 11/21/2019 Provide r: LONNY DESOUZA MD Diagnosis: Take as needed for outbreak Last Documented On 0 11:02AM By ALEXSANDRA PORTILLO ; [facility] Medications Administered Includes: Administered Medications in patient's chart Medications Administered Diagnosis Date Pro vider medroxyPROGESTERone Acetate 150 MG/ML IM SUSP 05/02/2017 LONNY DESOUZA MD Manufacture: Edevate Last Documented On 7 1:40PM By Stephy Soriano MA ; [facility] Depo-Provera 150 MG/ML IM SUSP CONTRACEPT SURVEILL NOS 04/23/2014 KATEY ASHTONBC given IM right gluteal. Last Documented On 4 4:07PM By MACIEL LOPEZ LPN ; [facility] medroxyPROGESTERone Acetate 150 MG/ML IM SUSP 04/06/2015 LONNY DESOUZA MD Last Documented On 5 2:05PM By ANTOINE BENDER RN ; [facility] medroxyPROGESTERone Acetate 150 MG/ML IM SUSP Encounter for surveillance of injectable contraceptive 03/21/2018 KATEY MERCADO Last Documented On 8 9:48AM By KOTA PORTILLO ; [facility] medroxyPROGESTERone Acetate 150 MG/ML IM SUSP 03/08/2016 LONNY DESOUZA MD Depo injection given in Right Glut..pt t olerated well..db Last Documented On 6 2:39PM By CALEB MARRERO LPN ; [facility] medroxyPROGESTERone Acetate 150 MG/ML IM SUSP Encounter for surveillance of injectable contraceptive 02/22/2019 ASHLEY SAMPSON MD Last Documented On 9 6:47AM By KATEY MERCADO ; [facility] Depo-Provera 150 MG/ML IM SUSP CONTRACEPT SURVEILL NOS 02/20/2013 KATEY MURPHY Last Documented On 3 1:24PM By KOTA PORTILLO ; [facility] medroxyPROGESTERone Acetate 150 MG/ML IM SUSP 02/01/2017 KATEY MERCADO PT TOLERATED WELL AD Last Documented On 7 2:47PM By OVI LOPEZ CMA ; [facility] Depo-Provera 150 MG/ML IM SUSP CONTRACEPT SURVEILL NOS 01/28/2014 LONNY DESOUZA MD Last Documented On 4 3:33PM By KOTA PORTILLO ; [facility] medroxyPROGESTERone Acetate 150 MG/ML IM SUSP 01/06/2015 LONNY DESOUZA MD left glut - pt tolerated well Last Documented On 5 11:20AM By MARIO MARTINEZ Yolanda ; [facility] medroxyPROGESTERone Acetate 150 MG/ML IM DAVID Encounter for surveillance of injectable contraceptive 01/03/2018 MALIKA ARRIAGA RN [facility] Last Documented On 8 2:06PM By Stephy Soriano MA ; [facility] medroxyPROGESTERone Acetate 150 MG/ML IM SUSP Encounter for surveillance of contraceptives, unspecified 12/22/2015 LONNY DESOUZA MD Last Documented On 6 9:34AM By KOTA PORTILLO ; [facility] Depo-Provera 150 MG/ML IM SUSP 11/28/2012 LONNY DESOUZA MD given IM left gluteal; poonam ated well; is aware next inj is due in 12 weeks. 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 Last Documented On 3 1:45PM By MACIEL LOPEZ LPN ; [facility] medroxyPROGESTERone Acetate 150 MG/ML IM SUSP Encounter for surveillance of injectable contraceptive 11/14/2016 LONNY DESOUZA MD pt tolerated well Last Documented On 7 10:53AM By MYLES HERNANDEZ LPN ; [facility] medroxyPROGESTERone Acetate 150 MG/ML IM SUSP Encounter for surveillance of injectable contraceptive 11/14/2019 KATEY SUNSHINE MIKE- Last Documented On 0 1:55PM By KOTA PORTILLO ; [facility] medroxyPROGESTERone Acetate 150 MG/ML IM SUSP 11/04/2013 LONNY DESOUZA MD 1 cc im right gluteal. tolerated well. Last Documented On 4 2:43PM By DESI NUNEZ LPN ; [facility] Depo-Provera 150 MG/ML IM SUSP CONTRACEPT SURVEILL NOS 2014 KATEY GARCIA NP-BC Last Documented On 5 11:04AM By KOTA PORTILLO ; [facility] medroxyPROGESTERone Acetate 150 MG/ML IM SUSP Encounter for surveillance of injectable contraceptive 10/06/2017 KATEY DOAN-BC Last Documented On 8 3:19PM By KATEY DOAN-NALLELY ; [facility] medroxyPROGESTERone Acetate 150 MG/ML IM SUSP Encounter for surveillance of injectable contraceptive 09/28/2015 LONNY DESOUZA MD depo admin 150mg/mL right glut IM, pt to lerated well Last Documented On 6 3:40PM By JOSEPHINE HINES MA ; [facility] medroxyPROGESTERone Acetate 150 MG/ML IM SUSP 08/27/2018 KATEY DOAN-BC pt tolerated well AD Last Documented On 9 1:58PM By OVI LOPEZ CMA ; [facility] medroxyPROGESTERone Acetate 150 MG/ML IM SUSP 08/24/2016 KATEY DOAN-BC pt tolerated well AD Last Documented On 7 1:35PM By OVI LOPEZ CMA ; [facility] medroxyPROGESTERone Acetate 150 MG/ML IM SUSP 08/17/2011 LONNY DESOUZA MD Last Documented On 2 2:10PM By MAGO DÍAZ LPN ; [facility] medroxyPROGESTERone Acetate 150 MG/ML IM SUSP Encounter for surveillance of injectable contraceptive 08/15/2019 KATEY MERCADO Last Documented On 0 2:01PM By KOTA HINOJOSA Yolanda ; [facility] medroxyPROGESTERone Acetate 150 MG/ML IM SUSP 08/06/2013 LONNY DESOUZA MD 1cc im right gluteal. tolerated well Last Documented On 4 3:43PM By DESI NUNEZ LPN ; [facility] medroxyPROGESTERone Acetate 150 MG/ML IM SUSP 07/21/2017 KATEY MERCADO PT TOLERATED WELL AD Last Documented On 8 1:51PM By OVI LOPEZ CMA ; [facility] Depo-Provera 150 MG/ML IM SUSP CONTRACEPT SURVEILL NOS 07/16/2014 KATEY MURPHY given IM left gluteal. Last Documented On 5 1:25PM By LONNY DESOUZA MD ; [facility] medroxyPROGESTERone Acetate 150 MG/ML IM SUSP 06/29/2015 LONNY DESOUZA MD left glut - pt tolerated well Last Documented On 6 1:59PM By MARIO MARTINEZ Yolanda ; [facility] Results Includes: Results from 06/28/2023 through 06/28/2024 No Results Recorded For Specified Dates History of Present Illness History of Present Illness not supported for this document type No History of Present Illness Recorded Social History Description Last Updated Tobacco non-user 03/25/2022 Last Documented On 2 1:56PM ; [facility] Current nonsmoker 06/05/2020 Last Documented On 1 2:08PM ; [facility] Alcohol use socially 06/05/2020 Last Documented On 1 2:08PM ; [facility] Exercising regularly 06/05/2020 Last Documented On 1 2:08PM ; [facility] In monogamous relationship 06/05/2020 Last Documented On 1 2:08PM ; [facility] Marital history on 10/12/192020 Last Documented On 1 2:08PM ; [facility] Non-smoker 06/05/2020 Last Documented On 1 2:08PM ; [facility] Not using drugs 06/05/2020 Last Documented On 1 2:08PM ; [facility] Gnosticism affiliation [employer] 1 Last Documented On 1 2:08PM ; [facility] Sexually active with 1 partners in the l ast year 06/05/2020 Last Documented On 1 2:08PM ; [facility] Smoking status : Never smoker 06/05/2020 Last Documented On 1 2:08PM ; [facility] Social history unchanged 06/05/2020 Last Documented On 1 2:08PM ; [facility] Procedures and Surgical History Surgical History Last Updated History of section X2 1 Last Documented On 1 2:08PM ; [facility] Previous colposcopy 03/02/2018 1 Last Documented On 1 2:08PM ; [facility] Surgical / procedural history [facility]CS 06/05 Last Documented On 1 2:08PM ; [facility] Medical History Includes: Medical History in patient's chart Description Last Updated LMP: 03/21/2022 03/25/2022 Last Documented On 2 1:56PM ; [facility] History of colonoscopy fiberoptic was pe rformed NONE 03/25/2022 Last Documented On 2 1:56PM ; [facility] History of screening mammogram was perfo rmed 09/21/2021 03/25/2022 Last Documented On 2 1:56PM ; [facility] Contraception: Herlinda 03/19/2021 Last Documented On 1 1:17PM ; [facility] Last mammogram date: 07/21/2020 1 Last Documented On 1 1:17PM ; [facility] Last pap smear date 02/28/2020 1 Last Documented On 1 1:17PM ; [facility] reviewed and unchanged since last visit 06/05/2020 Last Documented On 1 2:08PM ; [facility] Aborta 2 06/05/2020 Last Documented On 1 2:08PM ; [facility] section 06/05/2020 Last Documented On 1 2:08PM ; [facility] 4 06/05/2020 Last Documented On 1 2:08PM ; [facility] History of a DXA of the late ral lumbar spine was performed 02/09/2018 osteopenia 06/05/2020 Last Documented On 1 2:08PM ; [facility] History of Pap smear done 02/08/2019 Last Documented On 1 2:08PM ; [facility] No recent change in medical history 05/09 Last Documented On 1 2:08PM ; [facility] Para 2 06/05/2020 Last Documented On 1 2:08PM ; [facility] Result: abnormal ascus positive hpv 05/09 Last Documented On 1 2:08PM ; [facility] Result: normal 06/05/2020 Last Documented On 1 2:08PM ; [facility] Sexually active 06/05/2020 Last Documented On 1 2:08PM ; [facility] Vaginal delivery 06/05/2020 Last Documented On 1 2:08PM ; [facility] Family History Includes: Family History in patient's chart Description Last Updated Family history of malignant female breas t neoplasm MG 02/28/2020 Last Documented On 0 2:08PM ; [facility] Family history reviewed - [facility] visit 11/21/2019 Last Documented On 0 1:01PM ; [facility] Paternal history of pure hypercholestero lemia father 02/08/2019 Last Documented On 9 2:44PM ; [facility] Family history unchanged 02/08/2019 Last Documented On 9 2:44PM ; [facility] Maternal grandmother's history of malign ant female breast neoplasm MGM 02/08/2019 Last Documented On 9 2:44PM ; [facility] Family history of sexually abused 2009 Last Documented On 0 4:01PM ; [facility] Family medical history of high blood pre ssure 05/28/2009 Last Documented On 0 4:01PM ; [facility] Review of Systems Review of Systems not supported for this document type No Review of Systems Recorded Mental Status No Mental Status Recorded Functional Status No Functional Status Recorded Physical Exam Physical Exam not supported for this document type No Physical Exam Recorded Immunizations Includes: Immunizations in patient's chart Vaccine Dose # Date Site Reaction(s) Status Source TB TST (NOS) 1 11/21/2019 Right Lower Forearm Complete (Administered) [facility] Last Documented On 0 11:11AM ; [facility] Allergies Includes: Active, inactive, and resolved Allergies Substance Type Reaction Onset Date Resolved Date Statu s Shellfish Allergy Skin Rashes / Eruption of skin 0 Active Last Documented On 2 1:40PM ; [facility] Neosporin Allergy 12/13/2008 Active Last Documented On 2 1:40PM ; [facility] Insurance Includes: Active Insurance Policies Plan Name Member ID Group # Subscriber Relationship Effect shyam Dates 1 - [facility] [id number] SUDARSHAN REY Self Clinical Notes Includes: Signed Clinical Notes starting from 05/27/2022 No Clinical Notes Recorded
--- OUTSIDE RECORDS SUMMARY | 2024-06-28 14:46 | XMS_ITS | Clinical Summary ---
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 Name Role Phone TRENA MCKEON, DELFINA Sullivan Primary Care Provider [phone] ADRIÁN EDWARDS, ASHLEY Santos Unavailable [phone] Reason for Visit and Chief Complaint * PHONE CALL Problems Includes: Problems addressed during this encounter and other active Problems All Visits Onset Date Resolved Date Provider Condition S tatus Excisional Breast Biopsy 03/19/2021 KATEY DOAN-BC Active Last Documented On 03/19/2021 1:04PM ; [facility] Note: left breast - apocrine meta plasia Osteopenia 03/21/2018 KATEY SUNSHINE MIKE-BC Active Last Documented On 03/21/2018 9:39AM ; [facility] Note: Dexa done GENITAL HERPES NOS 08/03/2012 LONNY DESOUZA MD Active Last Documented On 3 11:30AM ; [facility] Plan of Treatment No Plan of Treatment Recorded Assessments Includes: Assessments from this encounter No Assessments Recorded Medical Equipment - Implanted Devices Includes: Current Devices No Medical Equipment Recorded Medications Includes: Medications discussed during this encounter and other current Medications Current Medications (continue as prescribed) Acyclovir 800 MG Oral Tablet 09/23/2022 Provider: KATEY MERCADO Diagnosis: One tablet daily Last Documented On 3 9:36AM By KATEY MERCADO ; [facility] Phentermine HCl 37.5 MG Oral Capsule 03/25/2022 Prov ider: Diagnosis: Last Documented On 03/25/2022 1:41PM By Carol PORTILLO ; [facility] Daily Value Multivitamin Oral Tablet 01/30/2017 Prov ider: Diagnosis: Last Documented On 7 2:09PM By NOAH PORTILLO ; [facility] Calcium 600 MG OR TABS 08/03/2012 Provider: Diagnosis: only takes occ. scott hagenn Last Documented On 3 11:23AM By MACIEL LOPEZ LPN ; [facility] Medications Administered Includes: Administered Medications from this encounter No Administered Medications Recorded Results Includes: Results discussed during this encounter No Results Recorded For Specified Dates History of Present Illness Includes: History of Present Illness from this encounter No History of Present Illness Recorded Social History Description Last Updated Tobacco non-user 03/25/2022 Last Documented On 3 10:43AM ; [facility] Current nonsmoker 06/05/2020 Last Documented On 3 10:43AM ; [facility] Alcohol use socially 06/05/2020 Last Documented On 3 10:43AM ; [facility] Exercising regularly 06/05/2020 Last Documented On 3 10:43AM ; [facility] In monogamous relationship 06/05/2020 Last Documented On 3 10:43AM ; [facility] Marital history on 10/12/192020 Last Documented On 3 10:43AM ; [facility] Non-smoker 06/05/2020 Last Documented On 3 10:43AM ; [facility] Not using drugs 06/05/2020 Last Documented On 3 10:43AM ; [facility] Voodoo affiliation Voodoo 1 Last Documented On 3 10:43AM ; [facility] Sexually active with 1 partners in the l ast year 06/05/2020 Last Documented On 3 10:43AM ; [facility] Smoking status : Never smoker 06/05/2020 Last Documented On 3 10:43AM ; [facility] Social history unchanged 06/05/2020 Last Documented On 3 10:43AM ; [facility] Procedures and Surgical History Surgical History Last Updated History of section X2 1 Last Documented On 3 10:43AM ; [facility] Previous colposcopy 03/02/2018 1 Last Documented On 3 10:43AM ; [facility] Surgical / procedural history LTCS 06/05 Last Documented On 3 10:43AM ; [facility] Medical History Includes: Medical History addressed during this encounter Description Last Updated LMP: 03/21/2022 03/25/2022 Last Documented On 3 10:43AM ; [facility] History of colonoscopy fiberoptic was pe rformed NONE 03/25/2022 Last Documented On 3 10:43AM ; [facility] History of screening mammogram was perfo rmed 09/21/2021 03/25/2022 Last Documented On 3 10:43AM ; [facility] Contraception: Herlinda 03/19/2021 Last Documented On 3 10:43AM ; [facility] Last mammogram date: 07/21/2020 1 Last Documented On 3 10:43AM ; [facility] Last pap smear date 02/28/2020 1 Last Documented On 3 10:43AM ; [facility] reviewed and unchanged since last visit 06/05/2020 Last Documented On 3 10:43AM ; [facility] Aborta 2 06/05/2020 Last Documented On 3 10:43AM ; [facility] section 06/05/2020 Last Documented On 3 10:43AM ; [facility] 4 06/05/2020 Last Documented On 3 10:43AM ; [facility] History of a DXA of the late ral lumbar spine was performed 02/09/2018 osteopenia 06/05/2020 Last Documented On 3 10:43AM ; [facility] History of Pap smear done 02/08/2019 Last Documented On 3 10:43AM ; [facility] No recent change in medical history 05/09 Last Documented On 3 10:43AM ; [facility] Para 2 06/05/2020 Last Documented On 3 10:43AM ; [facility] Result: abnormal ascus positive hpv 05/09 Last Documented On 3 10:43AM ; [facility] Result: normal 06/05/2020 Last Documented On 3 10:43AM ; [facility] Sexually active 06/05/2020 Last Documented On 3 10:43AM ; [facility] Vaginal delivery 06/05/2020 Last Documented On 3 10:43AM ; [facility] Family History Includes: Family History addressed during this encounter Description Last Updated Family history of malignant female breas t neoplasm MG 02/28/2020 Last Documented On 3 10:43AM ; [facility] Family history reviewed - unchanged sin e last visit 11/21/2019 Last Documented On 3 10:43AM ; [facility] Paternal history of pure hypercholestero lemia father 02/08/2019 Last Documented On 3 10:43AM ; [facility] Family history unchanged 02/08/2019 Last Documented On 3 10:43AM ; [facility] Maternal grandmother's history of malign ant female breast neoplasm MGM 02/08/2019 Last Documented On 3 10:43AM ; [facility] Family history of sexually abused 2009 Last Documented On 3 10:43AM ; [facility] Family medical history of high blood pre ssure 05/28/2009 Last Documented On 3 10:43AM ; [facility] Review of Systems Includes: Review of Systems from this encounter No Review of Systems Recorded Mental Status Includes: Mental Status from this encounter No Mental Status Recorded Functional Status Includes: Functional Status from this encounter No Functional Status Recorded Physical Exam Includes: Physical Exam from this encounter No Physical Exam Recorded Allergies Includes: Active Allergies Substance Type Reaction Onset Date Resolved Date Statu s Shellfish Allergy Skin Rashes / Eruption of skin 0 Active Last Documented On 2 1:40PM ; [facility] Neosporin Allergy 12/13/2008 Active Last Documented On 2 1:40PM ; [facility] Encounters Encounter Provider Location Date Check-In Time Check-Out Time Diagnosis * PHONE CALL KATEY A JONG MERCADO 11/29/2022 10:43AM 11:59PM Insurance Includes: Active Insurance Policies Plan Name Member ID Group # Subscriber Relationship Effect shyam Dates 1 - [facility] [id number] SUDARSHAN REY Self Clinical Notes Includes: Clinical Notes from this encounter * Progress note Date Encounter Last Documented by 11/29/2022 * PHONE CALL Last documented on 11/29/2022; 3:00 PM, KATEY SUNSHINE FRANKI-BC; [facility] Active Problems & Conditions - Excisional Breast Biopsy - left breast - apocrine metaplasia - GENITAL HERPES NOS - Osteopenia - Dexa done Chief Complaint Phone Call - Chief Concern: Reason for call: Pt called because if you look at her last mammogram report 2019,2020, and 2021 aren't in the list for comparison so she called and [facility] said they never got the request back from [facility]. The pt is going to [facility] tomorrow to picket labor [employer] her films to take to [facility] so they can do a new comparison. [facility] said the ordering provider has to put in an order to do a recomparison if you could put that order in. Then pt has the dx mammogram and u/s scheduled for Dec 14 at [facility]. pt phone # for return call: [phone] Date/Initials: 11/29/22 CLL. 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 Surgical / Procedural: Surgical / procedural history LTCS. Previous colposcopy 03/02/2018. : 4, para 2, aborta 2, history of the : vaginal delivery, and section. Sexual: Sexually active. Other: Colonoscopy fiberoptic was performed NONE. Screening mammogram was performed 09/21/2021. A DXA of the lateral lumbar spine was performed 02/09/2018 osteopenia Reviewed and unchanged since last visit. Procedural: - Pap smear done 02/08/2019 Surgical: - section X2 Social History Social history unchanged. Tobacco use: Current nonsmoker and non-smoker. Smoking status: Never smoker. Alcohol: Alcohol use socially. Drug Use: Not using drugs. Habits: Exercising regularly. Voodoo Status: Voodoo affiliation Voodoo. Marital: Marital history on 10/12/19. Sexual: In monogamous relationship. Sexually active with 1 partners in the last year. Allergies - Neosporin - Shellfish Reaction: Skin Rashes / Eruption of skin Family History Family history reviewed - unchanged since last visit Family history unchanged Family medical history of high blood pressure Sexually abused Malignant female breast neoplasm MGM Paternal: Pure hypercholesterolemia father Maternal grandmother's: Malignant female breast neoplasm MGM Plan StartCited - Other PHY ORDER/COMMENT I sent you an order that I believe will work? EndCited StartCited - Other signs and symptoms in breast Radiology @ [facility]/ULTRASOUND: Other Instructions: ok to do comparison to old mammogram films EndCited
--- OUTSIDE RECORDS SUMMARY | 2024-06-28 14:46 | XMS_ITS | Clinical Summary ---
Author Organization [facility] Address [address] [place] [address] Phone Care Team Providers Care Electronics Test Engineer Name Role Phone TRENA MCKEON, DELFINA Sullivan Primary Care Provider [phone] ADRIÁN EDWARDS, ASHLEY Santos Unavailable [phone] Reason for Visit and Chief Complaint * PHONE CALL Problems Includes: Problems addressed during this encounter and other active Problems All Visits Onset Date Resolved Date Provider Condition S tatus Excisional Breast Biopsy 03/19/2021 KATEY DOAN-BC Active Last Documented On 03/19/2021 1:04PM ; [facility] Note: left breast - apocrine meta plasia Osteopenia 03/21/2018 KATEY SUNSHINE MIKE-BC Active Last Documented On 03/21/2018 9:39AM ; [facility] Note: Dexa done GENITAL HERPES NOS 08/03/2012 LONNY DESOUZA MD Active Last Documented On 3 11:30AM ; [facility] Plan of Treatment No Plan of Treatment [...] On 3 9:36AM By KATEY MERCADO ; [facility] Phentermine HCl 37.5 MG Oral Capsule 03/25/2022 Prov ider: Diagnosis: Last Documented On 03/25/2022 1:41PM By Carol PORTILLO ; [facility] Daily Value Multivitamin Oral Tablet 01/30/2017 Prov ider: Diagnosis: Last Documented On 7 2:09PM By NOAH PORTILLO ; [facility] Calcium 600 MG OR TABS 08/03/2012 Provider: Diagnosis: only takes occ. scott hagenn Last Documented On 3 11:23AM By MACIEL LOPEZ LPN ; [facility] Medications Administered Includes: Administered Medications from this encounter No Administered Medications Recorded Results Includes: Results discussed during this encounter No Results Recorded For Specified Dates History of Present Illness Includes: History of Present Illness from this encounter No History of Present Illness Recorded Social History Description Last Updated Tobacco non-user 03/25/2022 Last Documented On 3 9:28AM ; [facility] Current nonsmoker 06/05/2020 Last Documented On 3 9:28AM ; [facility] Alcohol use socially 06/05/2020 Last Documented On 3 9:28AM ; [facility] Exercising regularly 06/05/2020 Last Documented On 3 9:28AM ; [facility] In monogamous relationship 06/05/2020 Last Documented On 3 9:28AM ; [facility] Marital history on 10/12/192020 Last Documented On 3 9:28AM ; [facility] Non-smoker 06/05/2020 Last Documented On 3 9:28AM ; [facility] Not using drugs 06/05/2020 Last Documented On 3 9:28AM ; [facility] Latter-Day affiliation Hinduism 1 Last Documented On 3 9:28AM ; [facility] Sexually active with 1 partners in the l ast year 06/05/2020 Last Documented On 3 9:28AM ; [facility] Smoking status : Never smoker 06/05/2020 Last Documented On 3 9:28AM ; [facility] Social history unchanged 06/05/2020 Last Documented On 3 9:28AM ; [facility] Procedures and Surgical History Includes: Procedures from this encounter Procedures Code Diagnosis Performing Provider Service L ocation Service Date use of tobacco assessment performed 1000F Last Documented On 3 9:29AM ; [facility] review of medications documented 1160F Last Documented On 3 9:29AM ; [facility] Surgical History Last Updated History of section X2 1 Last Documented On 3 9:28AM ; [facility] Previous colposcopy 03/02/2018 1 Last Documented On 3 9:28AM ; [facility] Surgical / procedural history LTCS 06/05 Last Documented On 3 9:28AM ; [facility] Medical History Includes: Medical History addressed during this encounter Description Last Updated LMP: 03/21/2022 03/25/2022 Last Documented On 3 9:28AM ; [facility] History of colonoscopy fiberoptic was pe rformed NONE 03/25/2022 Last Documented On 3 9:28AM ; [facility] History of screening mammogram was perfo rmed 09/21/2021 03/25/2022 Last Documented On 3 9:28AM ; [facility] Contraception: Herlinda 03/19/2021 Last Documented On 3 9:28AM ; [facility] Last mammogram date: 07/21/2020 1 Last Documented On 3 9:28AM ; [facility] Last pap smear date 02/28/2020 1 Last Documented On 3 9:28AM ; [facility] reviewed and unchanged since last visit 06/05/2020 Last Documented On 3 9:28AM ; [facility] Aborta 2 06/05/2020 Last Documented On 3 9:28AM ; [facility] section 06/05/2020 Last Documented On 3 9:28AM ; [facility] 4 06/05/2020 Last Documented On 3 9:28AM ; [facility] History of a DXA of the late ral lumbar spine was performed 02/09/2018 osteopenia 06/05/2020 Last Documented On 3 9:28AM ; [facility] History of Pap smear done 02/08/2019 Last Documented On 3 9:28AM ; [facility] No recent change in medical history 05/09 Last Documented On 3 9:28AM ; [facility] Para 2 06/05/2020 Last Documented On 3 9:28AM ; [facility] Result: abnormal ascus positive hpv 05/09 Last Documented On 3 9:28AM ; [facility] Result: normal 06/05/2020 Last Documented On 3 9:28AM ; [facility] Sexually active 06/05/2020 Last Documented On 3 9:28AM ; [facility] Vaginal delivery 06/05/2020 Last Documented On 3 9:28AM ; [facility] Family History Includes: Family History addressed during this encounter Description Last Updated Family history of malignant female breas t neoplasm MG 02/28/2020 Last Documented On 3 9:28AM ; [facility] Family history reviewed - unchanged sin e last visit 11/21/2019 Last Documented On 3 9:28AM ; [facility] Paternal history of pure hypercholestero lemia father 02/08/2019 Last Documented On 3 9:28AM ; [facility] Family history unchanged 02/08/2019 Last Documented On 3 9:28AM ; [facility] Maternal grandmother's history of malign ant female breast neoplasm MGM 02/08/2019 Last Documented On 3 9:28AM ; [facility] Family history of sexually abused 2009 Last Documented On 3 9:28AM ; [facility] Family medical history of high blood pre ssure 05/28/2009 Last Documented On 3 9:28AM ; [facility] Review of Systems Includes: Review of [...] Active Last Documented On 2 1:40PM ; [facility] Neosporin Allergy 12/13/2008 Active Last Documented On 2 1:40PM ; [facility] Encounters Encounter Provider Location Date Check-In Time Check-Out Time Diagnosis * PHONE CALL KATEY MERCADO 09/23/2022 9:28AM 11:59PM Insurance Includes: Active Insurance Policies Plan Name Member ID Group # Subscriber Relationship Effect shyam Dates 1 - [facility] [id number] SUDARSHAN Zulma REY Self Clinical Notes Includes: Clinical Notes from this encounter * Progress note Date Encounter Last Documented by 09/23/2022 * PHONE CALL Last documented on 09/23/2022; 9:31 AM, KATEY MERCADO; [facility] Active Problems & Conditions - Excisional Breast Biopsy - left breast - apocrine metaplasia - GENITAL HERPES NOS - Osteopenia - Dexa done Chief Complaint Phone Call - Chief Concern: Reason for call: I called pt. about a med refill. While on the phone she said she is due for her mammogram this month and wants to [facility] now that she works for [employer] she was wondering if she could get an order. pt phone # for return call: [phone] Date/Initials: 09/23/22 CLL. Current Medication - Acyclovir 800 MG Oral Tablet One tablet daily, 30 days, 11 refills - Acyclovir 800 MG Oral Tablet One tablet daily, 30 days, 5 refills - Calcium 600 MG Tablet only takes occ. ch attraction attendant, 0 days, 0 refills - Daily Value [...] Use: Not using drugs. Habits: Exercising regularly. Latter-Day Status: Latter-Day affiliation Hinduism. Marital: Marital history on 10/12/19. Sexual: In [...] female breast neoplasm MGM Plan StartCited - Encntr screen mammogram for malignant neoplasm of breast Radiology @ other/*MAMMOGRAPHY: SCREENING MAMMOGRAM Instructions: Additional images/ultrasounds if indicated Please send to PCP EndCited StartCited - Other PHY ORDER/COMMENT Order in chart as requested. EndCited Practice Management Use of tobacco assessment performed Review of medications documented.
--- OUTSIDE RECORDS SUMMARY | 2024-06-28 14:47 | XMS_ITS | Clinical Summary ---
Author Organization [facility] Address [address] [place] [address] Phone Care Team Providers Care Almond Cutting Machine Tender Name Role Phone TRENA MCKEON, DELFINA Sullivan Primary Care Provider ADRIÁN EDWARDS, ASHLEY Santos Unavailable [phone] Reason for Visit and Chief Complaint [Patient Encounter] Problems Includes: Problems addressed during this encounter and other active Problems All Visits Onset Date Resolved Date Provider Condition S tatus Excisional Breast Biopsy 03/19/2021 KATEY DOAN-BC Active Last Documented On 03/19/2021 1:04PM ; [facility] Note: left breast - apocrine meta plasia Osteopenia 03/21/2018 KATEY SUNSHINE MIKE-BC Active Last Documented On 03/21/2018 9:39AM ; [facility] Note: Dexa done GENITAL HERPES NOS 08/03/2012 LONNY DESOUZA MD Active Last Documented On 3 11:30AM ; [facility] Plan of Treatment No Plan of [...] On 3 9:36AM By KATEY MERCADO ; [facility] Phentermine HCl 37.5 MG Oral Capsule 03/25/2022 Prov ider: Diagnosis: Last Documented On 03/25/2022 1:41PM By Carol PORTILLO ; [facility] Daily Value Multivitamin Oral Tablet 01/30/2017 Prov ider: Diagnosis: Last Documented On 7 2:09PM By NOAH PORTILLO ; [facility] Calcium 600 MG OR TABS 08/03/2012 Provider: Diagnosis: only takes occ. scott hagenn Last Documented On 3 11:23AM By MACIEL LOPEZ LPN ; [facility] Medications Administered Includes: Administered Medications from this encounter No Administered Medications Recorded Results Includes: Results discussed during this encounter No Results Recorded For Specified Dates History of Present Illness Includes: History of Present Illness from this encounter No History of Present Illness Recorded Social History No Social History Recorded - Smoking Status Unknown Medical History Includes: Medical History addressed during this encounter No Medical History Recorded Family History Includes: Family History addressed during this encounter No Family History Recorded Review of Systems Includes: Review of Systems [...] Active Last Documented On 2 1:40PM ; [facility] Neosporin Allergy 12/13/2008 Active Last Documented On 2 1:40PM ; [facility] Encounters Encounter Provider Location Date Check-In Time Check-Out Time Diagnosis [Patient Encounter] KATEY Guerrero [facility]- 11/28/2022 7:59AM 11:59PM Insurance Includes: Active Insurance Policies Plan Name Member ID Group # Subscriber Relationship Effect shyam Dates 1 - [facility] [id number] SUDARSHAN REY Self Clinical Notes Includes: Clinical Notes from this encounter No Clinical Notes Recorded
--- OUTSIDE RECORDS SUMMARY | 2024-06-28 14:47 | XMS_ITS | Referral Summary ---
Author Organization [facility] [address] [place] [address] Care Team Providers Care Bell Maker Name Role Phone Nita Major NP Primary Care Provider [phone] Encounters Date Type Department Care Team Description 06/24/2024 11:50 AM ENGINE CLEANER Lab [address] [address] from Last 3 Months Allergies Active Allergy Reactions Criticality Noted Date [...] Infectious warts 06/14/2016 09/01/2023 Overview (08/11/2016): Wart Immunizations Immunization Administration Dates Next Due Influenza, Quadrivalent, Rec ombinant, Egg Free, Preservative Free, Intramuscular 07/22/2019 Influenza, Quadrivalent, Spl it, Preservative Free, Intramuscular 02/26/2023 Influenza, Trivalent, Preservative Free, Intramu scular 02/07/2024 PPD TEST 11/21/2019 Social History Tobacco Use Types Packs/Day Years Used Date Smoking Tobacco: Never Smokeless Tobacco: Never Tobacco Cessation:Counseling Given: Not Answered PHQ-2 Answer Date Recorded PHQ-2 Total Score (If total score is 3 or more points, staff should administer the PHQ-9) 0 09/01/2023 Comments Unknown Sex and Gender Information Value Date Recorded Sex Assigned at Not on file Legal Sex Female 12:56 PM ENGINE CLEANER Gender Identity Not on file Sexual Orientation Not on file Last Filed Vital Signs Vital Sign Reading [...] COLONOSCOPY Open Access Encounter for screening colonoscopy Procedures Procedure Name Priority Date/Time Associated Diagnosis Comments EGFR Routine 06/24/2024 11:54 AM ENGINE CLEANER DIFFERENTIAL AUTO Routine 06/24/2024 11: 54 AM ENGINE CLEANER RHEUMATOID FACTOR Routine 06/24/2024 11: 54 AM ENGINE CLEANER CRP (ACUTE PHASE) Routine 06/24/2024 11: 54 AM ENGINE CLEANER LETY SCREEN W/REFLEX ERASMO+DSDNA Routine 06/24/2024 11:54 AM ENGINE CLEANER CREATINE KINASE (CK), TOTAL Routine 06/24/2024 11:54 AM ENGINE CLEANER SCL 70 ANTIBODIES Routine 06/24/2024 11: 54 AM ENGINE CLEANER ERYTHROCYTE SEDIMENTATION RATE Routine 06/24/2024 11:54 AM ENGINE CLEANER COMPREHENSIVE METABOLIC PANEL Routine 06/24/2024 11:54 AM ENGINE CLEANER URIC ACID Routine 06/24/2024 11:54 AM ENGINE CLEANER G6PD QUALITATIVE WITH REFLEX TO QUANTITATIVE Routine 06/24/2024 11:54 AM ENGINE CLEANER CYCLIC CITRUL PEPTIDE ANTIBODY, IGG Routine 06/24/2024 11:54 AM ENGINE CLEANER CBC WITH AUTO DIFFERENTIAL Routine 06/24/2024 11:54 AM ENGINE CLEANER SJOGRENS SYNDROME-B ANTIBODY Routine 06/24/2024 11:54 AM ENGINE CLEANER SJOGRENS SYNDROME-A ANTIBODY Routine 06/24/2024 11:54 AM ENGINE CLEANER HEPATITIS B SURFACE ANTIGEN Routine 06/24/2024 11:54 AM ENGINE CLEANER HEPATITIS C ANTIBODY Routine 06/24/2024 11:54 AM ENGINE CLEANER SCREENING MAMMOGRAM BILATERAL W ALAN Schedule Routine, Read Routine (OP Routine) 02/16/2024 1:24 PM CDT Screening mammogram, encounter for from Last 3 Months or Most Recently Relevant to Health Maintenance Results * LETY screen w/rflx ERASMO+dsDNA (06/24/2024 11:54 AM ENGINE CLEANER) LETY Negative Comment: Interpretive Data Normal range [...] last revised on 2020. Testing performed by: [facility], [address] [place] [address]., [id number] Blood 06/24/2024 11:5 4 AM ENGINE CLEANER 06/24/2024 7:49 PM ENGINE CLEANER us Virginia Mancia MD LAB BLOOD ORDERABLES Final Resul t [facility] [address] Department [place] [address] * G6PD qualitative with reflex to quantitative (06/24/2024 11:54 AM ENGINE CLEANER) G6PD Normal Normal Comment: Interp data: G6PD activity should be interpreted in the context of a patient's hematocrit. Hematocrit < 20% may lead to a falsely deficient result, while hematocrit > 50% may lead to a falsely normal result. Current interpretive data was last revised on 2019. Testing performed by: [address] [address] Blood 06/24/2024 11:5 4 AM ENGINE CLEANER 06/24/2024 7:49 PM ENGINE CLEANER us Virginia Mancia MD LAB BLOOD ORDERABLES Final Resul t Performing Organization Address [facility] Co de Phone Number [facility] [address] Department [place] [address] * SCL 70 abs (06/24/2024 11:54 AM ENGINE CLEANER) Anti-Scl70, IgG <0.2 <=0.9 Ab Index Comment: Interpretive Data Negative: < 1.0 Ab Index Positive: > or = 1.0 Ab Index Current interpretive data was last revised on 2016. Testing performed by: [facility], [address] [place]., [address] Blood 06/24/2024 11:5 4 AM ENGINE CLEANER 06/24/2024 7:43 PM ENGINE CLEANER Virginia Mancia MD LAB BLOOD ORDERABLES Final Resul t Performing Organization Address [facility] de Phone Number [facility] [address] Department [place] [address] * eGFR (06/24/2024 11:54 AM ENGINE CLEANER) eGFR >90 >=60 mL/min/1. 73 m2 Comment: [...] reviewed 2021. Blood 06/24/2024 11:5 4 AM ENGINE CLEANER 06/24/2024 5:23 PM ENGINE CLEANER us Virginia Mancia MD LAB BLOOD ORDERABLES Final Resul t [facility] [address] Department [place] [address] * Differential, auto (06/24/2024 11:54 AM ENGINE CLEANER) Neutrophil abs 3.8 1.5 - 6.5 K/cumm Imm gran abs 0.0 0.0 - 0.1 K/cumm [facility] Lymphocyte abs 1.7 0.8 - 3.3 K/cumm [facility] Monocyte abs 0.7 0.2 - 0.8 K/cumm [facility] Eosinophil abs 0.1 0.0 - 0.5 K/cumm [facility] Basophil abs 0.0 0.0 - 0.1 K/cumm [facility] Neutrophil pct 60.8 % [facility] Comment: Interpretive Data Percent cell count reference ranges are not reported, since discordance with absolute values may lead to misinterpretation of CBC data. Current Interpretive Data was last revised on 2017. Imm gran pct 0.2 % [facility] Comment: Interpretive Data Percent cell count reference ranges are not reported, since discordance with absolute values may lead to misinterpretation of CBC data. Current Interpretive Data was last revised on 2017. Lymphocyte pct 26.5 % [facility] Comment: Interpretive Data Percent cell count reference ranges are not reported, since discordance with absolute values may lead to misinterpretation of CBC data. Current Interpretive Data was last revised on 2017. Monocyte pct 10.6 % [facility] Comment: Interpretive Data Percent cell count reference ranges are not reported, since discordance with absolute values may lead to misinterpretation of CBC data. Current Interpretive Data was last revised on 2017. Eosinophil pct 1.3 % [facility] Comment: Interpretive Data Percent cell count reference ranges are not reported, since discordance with absolute values may lead to misinterpretation of CBC data. Current Interpretive Data was last revised on 2017. Basophil pct 0.6 % [facility] Comment: Interpretive Data Percent cell count reference ranges are not reported, since discordance with absolute values may lead to misinterpretation of CBC data. Current Interpretive Data was last revised on 2017. Blood 06/24/2024 11:5 4 AM ENGINE CLEANER 06/24/2024 3:17 PM ENGINE CLEANER us Virginia Mancia MD LAB BLOOD ORDERABLES Final Resul t Performing Organization Address [facility]/ZIP Co de Phone Number [facility] [address] [place] [address] * (ABNORMAL) CBC with auto differential (06/24/2024 11:54 AM ENGINE CLEANER) WBC 6.2 3.8 - 9.9 K/cumm Hgb 11.7(L) 11.9 - 15.5 g/dL [facility] Hct 38.4 35.6 - 45.5 % [facility] Plt 338 150 - 400 K/cumm [facility] MPV 11.3 9.1 - 12.3 fL [facility] RBC 4.74 3.90 - 5.20 M/cumm [facility] MCV 81.0(L) 81.3 - 96.4 fL [facility] MCH 24.7(L) 27.1 - 33.3 pg [facility] MCHC 30.5(L) 32.3 - 35.7 g/dL [facility] RDW CV 14.3 11.1 - 14.9 % [facility] RDW SD 41.7 35.7 - 48.1 fL [facility] NRBC abs 0.00 0.00 - 0.01 K/cumm [facility] Blood 06/24/2024 11:5 4 AM ENGINE CLEANER 06/24/2024 3:17 PM ENGINE CLEANER us Virginia Mancia MD LAB BLOOD ORDERABLES Final Resul t Performing Organization Address [facility]/ZIP Co de Phone Number [facility] [address] [place] [address] * Hepatitis C antibody Blood (06/24/2024 11:54 AM ENGINE CLEANER) Pathologist [facility] Hep C Ab Nonreactive Nonreactive Comment: Interpretive [...] on 2019. Blood 06/24/2024 11:5 4 AM ENGINE CLEANER 06/24/2024 5:23 PM ENGINE CLEANER us Virginia Mancia MD LAB MICROBIOLOGY - GENERAL ORDER YANETH Final Result Performing Organization Address [facility] Co de Phone Number [facility] [address] [place] [address] * Cyclic citrul peptide antibody, IgG (06/24/2024 11:54 AM ENGINE CLEANER) [facility] CCP Ab <0.5 <=2.9 units/mL Comment: Interpretive data Negative: <3 units/mL Positive: > or equal to 3 units/mL Current interpretive data was last revised on 2016. Testing performed by: [facility], [address] [place]., [address] Blood 06/24/2024 11:5 4 AM ENGINE CLEANER 06/24/2024 7:43 PM ENGINE CLEANER us Virginia Mancia MD LAB BLOOD ORDERABLES Final Resul t Performing Organization Address [facility]/ZIP Co de Phone Number [facility] [address] [facility] [place] [address] * Hepatitis B Surface Antigen Blood (06/24/2024 11:54 AM ENGINE CLEANER) [facility] HepBsAg Nonreactive Nonreactive Blood 06/24/2024 11:5 4 AM ENGINE CLEANER 06/24/2024 5:23 PM ENGINE CLEANER us Virginia Mancia MD LAB MICROBIOLOGY - GENERAL ORDER YANETH Final Result Performing Organization Address [facility] Co de Phone Number [facility] [address] [facility] [place] [address] * Sjogren's syndrome B ab (06/24/2024 11:54 AM ENGINE CLEANER) Anti-ERASMO, SS-B <0.2 <=0.9 Ab Index Comment: Interpretive Data Negative: < 1.0 Ab Index Positive: > or = 1.0 Ab Index Current interpretive data was last revised on 2016. Testing performed by: [facility], [address] [place] [address]., [id number] Blood 06/24/2024 11:5 4 AM ENGINE CLEANER 06/24/2024 7:43 PM ENGINE CLEANER Result Toni Mancia MD LAB BLOOD ORDERABLES Final Resul t Performing Organization Address [facility] Co de Phone Number [facility] [address] [facility] [place] [address] * Sjogren's syndrome A ab (06/24/2024 11:54 AM ENGINE CLEANER) Anti-ERASMO, SS-A <0.2 <=0.9 Ab Index Comment: Interpretive Data Negative: < 1.0 Ab Index Positive: > or = 1.0 Ab Index Current interpretive data was last revised on 2016. Testing performed by: [facility], [address] [place] [address]., [id number] Blood 06/24/2024 11:5 4 AM ENGINE CLEANER 06/24/2024 7:43 PM ENGINE CLEANER us Virginia Mancia MD LAB BLOOD ORDERABLES Final Resul t Performing Organization Address [facility] Co de Phone Number [facility] [address] [facility] [employer] [place], [place] [id number] * Erythrocyte sedimentation rate (06/24/2024 11:54 AM ENGINE CLEANER) Erythrocyte sedimentation rate 22 1 - 30 mm/hr Blood 06/24/2024 11:5 4 AM ENGINE CLEANER 06/24/2024 3:17 PM ENGINE CLEANER us Virginia Mancia MD LAB BLOOD ORDERABLES Final Resul t Performing Organization Address [facility] de Phone Number [facility] [address] [facility] [place] [address] * Rheumatoid factor (06/24/2024 11:54 AM ENGINE CLEANER) Rheumatoid factor, quant <10 <=15 IUnits/mL Blood 06/24/2024 11:5 4 AM ENGINE CLEANER 06/24/2024 5:23 PM ENGINE CLEANER Result Toni Mancia MD LAB BLOOD ORDERABLES Final Resul t Performing Organization Address [facility] de Phone Number [facility] [address] [facility] [place] [address] * CRP (acute phase) (06/24/2024 11:54 AM ENGINE CLEANER) Pathologist [facility] CRP <3.0 <=10.0 mg/L Blood 06/24/2024 11:5 4 AM ENGINE CLEANER 06/24/2024 5:23 PM ENGINE CLEANER Result Toni Mancia MD LAB BLOOD ORDERABLES Final Resul t Performing Organization Address [facility] Co de Phone Number [facility] [address] [facility] [employer] [place], [place] [id number] * Uric acid (06/24/2024 11:54 AM ENGINE CLEANER) [facility] Uric acid 3.8 2.5 - 7.0 mg/dL Blood 06/24/2024 11:5 4 AM ENGINE CLEANER 06/24/2024 5:23 PM ENGINE CLEANER us Virginia Mancia MD LAB BLOOD ORDERABLES Final Resul t Performing Organization Address [facility] Co de Phone Number [facility] [address] Department [place] [address] * Creatine kinase (CK), total (06/24/2024 11:54 AM ENGINE CLEANER) [facility] CK 80 30 - 200 Units/L Blood 06/24/2024 11:5 4 AM ENGINE CLEANER 06/24/2024 5:23 PM ENGINE CLEANER us Virginia Mancia MD LAB BLOOD ORDERABLES Final Resul t Performing Organization Address [facility] de Phone Number [facility] [address] Department [place] [address] * (ABNORMAL) Comprehensive metabolic panel (06/24/2024 11:54 AM ENGINE CLEANER) [facility] Sodium 140 135 - 145 mmol/L Potassium, pl 3.7 3.3 - 4.9 mmol/L [facility] Chloride 103 97 - 110 mmol/L [facility] CO2 26 22 - 32 mmol/L [facility] Anion gap 11 2 - 15 mmol/L [facility] BUN 8 6 - 25 mg/dL [facility] Creatinine 0.70 0.60 - 1.10 mg/dL [facility] Glucose 68(L) 70 - 199 mg/dL [facility] Comment: Interpretive Data Fasting glucose >/= 126 [...] 2022. Calcium 9.3 8.5 - 10.3 mg/dL [facility] Bilirubin, total 0.2 0.1 - 1.2 mg/dL [facility] Protein, pl 7.7 6.5 - 8.5 g/dL [facility] Albumin 4.2 3.5 - 5.0 g/dL [facility] Alk phos 85 40 - 130 Units/L [facility] ALT 18 7 - 45 Units/L [facility] AST 19 10 - 45 Units/L [facility] Blood 06/24/2024 11:5 4 AM ENGINE CLEANER 06/24/2024 5:23 PM ENGINE CLEANER us Virginia Mancia MD LAB BLOOD ORDERABLES Final Resul t [facility] [address] Department [place] [address] * Screening Mammogram Bilateral W Alan (02/16/2024 [...] masses are noted. These are considered benign. us Self Screening Mammogram IMG MAMMO PROCEDURES Fi nal Result from Last 3 Months or Most Recently Relevant to Health Maintenance Insurance [facility] Care Teams Bell Maker Relationship Specialty Start Date End Date Nita Major NP PCP - General Family Medicine 09/01/23
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
== END 2024-06-28 14:40 | disposition home or self-care (01) ==
PROVIDERS: PCP Clinical Nurse Specialist; Visit Provider Clinical Nurse Specialist
DX: R51.9 Headache, unspecified (principal); Z82.0 Family history of epilepsy and other diseases of the nervous system
CPT/HCPCS: 70553; A9577